=== PATIENT | female | born 1965 | race Caucasian/White ===

== ENCOUNTER 2018-01-21 06:52 | Emergency (ER) | payer BC, SELFPAY ==
[2018-01-21 06:55] VITALS: BP 147/104; PULSE 126; RESP 14; TEMP 38; O2SAT 95
--- NOTE | 2018-01-21 07:05 | ED.GENADUL_ITS ---
Discharge Plan Disposition Patient Disposition: HOME Condition: Stable Discharge Details Chief Complaint: RespSymp Clinical Impression: Exudative pharyngitis Primary Care Provider: Alecia Godfrey ED Provider: Jermaine Bruce Home Meds and New Rx's Prescriptions: New penicillin V potassium 500 mg tablet 500 mg PO TID 10 Days Qty: 30 RF: 0 Continue citalopram 40 MG tablet 40 mg PO DAILY RF: 0 simvastatin 40 MG tablet 40 mg PO DAILY RF: 0 losartan-hydrochlorothiazide 1 EACH tablet 1 tab PO DAILY RF: 0 lactobacillus combination no.8 [Adult Probiotic] 1 EACH capsule 1 tab PO DAILY RF: 0 cyanocobalamin (vitamin B-12) [Vitamin B-12] 1,000 MCG/ML drops DAILY RF: 0 Tumeric 2 tab PO DAILY RF: 0 cyclobenzaprine 10 MG tablet 10 mg PO TID PRN (Reason: Muscle Spasm) Qty: 15 RF: 0 Discharge Instructions Instructions: Pharyngitis (ED) Additional Instructions: Home to rest today. Take penicillin as prescribed. Tylenol and/or ibuprofen as needed for pain. Follow-up with regular doctor if not improving in 3 days time. Return to the emergency department for any acute concern. Medical Decision Making 52-year-old female presents from home with 2 days of sore throat, fevers, generalized malaise. She does not have a cough or respiratory symptoms. She is febrile and with a borderline tachycardia at the time of my exam. Oropharynx reveals tonsillar erythema with overlying exudate. Rapid strep obtained and +, will treat with a course of antibiotics. Discussed home management as well as return precautions with her. HPI General Mode of arrival: ambulatory . Date/Time Provider Initiated Documentation: 01/21/18 06:56 . Limitations to Documentation: no limitations . Information obtained by: patient . History of Present Illness 52 year old F presents to the emergency department with the chief complaint of Sore throat, described as moderate and severe, Quality is described as aching and constant, Patient reports no radiation. Patient started experiencing this day(s) and it has been constant. No relieving factors improve symptom(s), No exacerbating factors reported . Patient notes fever/ chills and malaise; denies cough and nausea/vomiting. Related Data Home Medications Medication Instructions Recorded Confirmed Tumeric 2 tab PO DAILY 03/21/17 01/21/18 citalopram 40 mg PO DAILY 03/21/17 01/21/18 cyanocobalamin (vitamin B-12) DAILY 03/21/17 [Vitamin B-12] cyclobenzaprine 10 mg PO TID PRN #15 tab 03/21/17 01/21/18 lactobacillus combination no.8 1 tab PO DAILY 03/21/17 01/21/18 [Adult Probiotic] losartan-hydrochlorothiazide 1 tab PO DAILY 03/21/17 01/21/18 simvastatin 40 mg PO DAILY 03/21/17 01/21/18 penicillin V potassium 500 mg PO TID 10 Days #30 tab 01/21/18 Previous Rx's Medication Instructions Recorded cyclobenzaprine 10 mg PO TID PRN #15 tab 03/21/17 penicillin V potassium 500 mg PO TID 10 Days #30 tab 01/21/18 Allergies Allergy/AdvReac Type Severity Reaction Status Date / Time acetaminophen [From Vicodin] Allergy Intermediate Itching Unverified 01/21/18 07 :00 hydrocodone [From Vicodin] Allergy Intermediate Itching Unverified 01/21/18 07: 00 General Stated Complaint: RespSymp THEE: 4 Review of Systems Review of Systems + sinus pain and pressure, 6 systems reviewed and otherwise neg PFSH Social History Smoking/Tobacco Use Status: Never Social History Smoking/Tobacco Use Status: Never Exam Narrative Exam Narrative: GEN: awake, alert, oriented 3. Pleasant, well groomed, interactive. HEAD: Normocephalic, atraumatic ENT: Mucous membranes moist, oropharynx with erythema, left greater than right tonsillar inflammation with overlying white exudate. Uvula is midline. Anterior cervical lymphadenopathy, External ear exam unremarkable EYES: PERRL, EOMI NECK: Full ROM, no SHAHEEN, no menigismus CHEST/RESP: Nontender, clear to auscultation bilateral, no wheeze/rhonchi/rales CARDIOVASCULAR:borderline tachycardia, no murmur, rub alyssa. 2+ Rad pulse bilateral ABDOMEN: Soft, nontender, no mass. +Bowel sounds EXT: Full ROM, no edema, no rash Neuro: Grossly normal neurologic exam, conversant, interactive. Psych: Speech fluent, thoughts congruent, affect normal Course Vital Signs Temperature 38.0 C H 01/21/18 06:55 Pulse 126 H 01/21/18 06:55 Respiratory Rate 14 01/21/18 06:55 Blood Pressure 147/104 H 01/21/18 06:55 Pulse Oximetry 95 01/21/18 06:55 Temperature 38.0 C H 01/21/18 06:55 Temperature Source Temporal Artery Scan 01/21/18 06:55 Pulse 126 H 01/21/18 06:55 Respiratory Rate 14 01/21/18 06:55 Respiratory Effort Non-Labored 01/21/18 06:59 Blood Pressure 147/104 H 01/21/18 06:55 Pulse Oximetry 95 01/21/18 06:55 Oxygen Delivery Method Room Air 01/21/18 06:55 Oxygen Flow Rate 0 01/21/18 06:55 Pain Level 4 01/21/18 06:55
[2018-01-21] MEDS: Dexamethasone 4 MG TAB 10 MG PO (07:15)
[2018-01-21] MEDS: Penicillin V POTASSIUM 500 MG TAB PO (07:15)
[2018-01-21] MEDS: Ibuprofen 800 MG TAB PO (07:16)
== END 2018-01-21 07:20 | disposition home or self-care (01) ==
LOC: ER 07:25
PROVIDERS: Emergency Provider Emergency Medicine; PCP Internal Medicine
DX: J02.0 Streptococcal pharyngitis (principal); I10 Essential (primary) hypertension
CPT/HCPCS: 87880; 99283; J8540

== ENCOUNTER 2018-01-24 05:51 | Emergency (ER) | payer BC, SELFPAY ==
[2018-01-24 05:58] VITALS: BP 139/101; PULSE 107; RESP 18; TEMP 36.7; O2SAT 94
--- NOTE | 2018-01-24 06:28 | ED.GENADUL_ITS ---
Discharge Plan Disposition Patient Disposition: HOME Condition: Stable Discharge Details Chief Complaint: Sorethroat Clinical Impression: Strep pharyngitis, Viral syndrome Primary Care Provider: Alecia Godfrey ED Provider: Citlali Tyler Home Meds and New Rx's Prescriptions: New prednisone 20 mg tablet 20 mg PO DIRECTED Qty: 12 RF: 0 Continue citalopram 40 MG tablet 40 mg PO DAILY RF: 0 simvastatin 40 MG tablet 40 mg PO DAILY RF: 0 losartan-hydrochlorothiazide 1 EACH tablet 1 tab PO DAILY RF: 0 lactobacillus combination no.8 [Adult Probiotic] 1 EACH capsule 1 tab PO DAILY RF: 0 cyanocobalamin (vitamin B-12) [Vitamin B-12] 1,000 MCG/ML drops DAILY RF: 0 Tumeric 2 tab PO DAILY RF: 0 cyclobenzaprine 10 MG tablet 10 mg PO TID PRN (Reason: Muscle Spasm) Qty: 15 RF: 0 penicillin V potassium 500 mg tablet 500 mg PO TID 10 Days Qty: 30 RF: 0 Discharge Instructions Instructions: Pharyngitis (ED), Viral Syndrome (ED) Additional Instructions: Take the antibiotics and steroids until finished. Alternate Tylenol and Motrin as needed and directed for pain. Drink plenty of fluids and get plenty of rest. Follow-up with your primary care doctor next week as scheduled for reevaluation. Return to the emergency department with any worsening or new concerning symptoms. Discharge Data Discharge Physician: Citlali Tyler Medical Decision Making 52-year-old female diagnosed with strep pharyngitis 3 days ago in the ED sent home on penicillin who presents with worsening sore throat, fatigue, malaise and postnasal drip. Denies shortness of breath or known fever. Patient was given a dose of Decadron on her visit 3 days ago. Patient has bilateral tonsillar edema, erythema and exudates. Uvula midline. No obvious peritonsillar abscess. No submandibular swelling. No significant mass or splenomegaly but has minimal LUQ tenderness. She denies any known abdominal pain. Differential diagnosis includes mono, or viral syndrome, or worsening pharyngitis that will require a few days of steroids. Patient denies any shortness of breath and discussed that her cough with occasional sputum likely due to the postnasal drip noted on exam. Her lungs are otherwise clear to auscultation. Patient is agreeable with this and is declining a chest x-ray at this time. We will give a dose of prednisone p.o. and check a mono screen. 0710 --monoscreen negative. Discussed with patient that there is a small percentage of patients that may have a false negative mono screen. Discussed with patient that 48 hours of antibiotics is generally the timeframe to see an effect. She states she has not been on any other recent antibiotics. Discussed the treatment for viral syndrome/mono is essentially the same including plenty of rest, fluids, Tylenol, Motrin. We will send home with a prescription for steroids. Instructed that her symptoms may be the beginning signs of another illness that is not apparent at this time and that if she has any worsening or new concerning symptoms to return immediately to the emergency department. Patient has a follow-up appointment with her primary care doctor in 1 week for reevaluation. HPI General Mode of arrival: ambulatory . Date/Time Provider Initiated Documentation: 01/24/18 06:03 . Limitations to Documentation: no limitations . Information obtained by: patient . HPI Narrative: Patient is a 52-year-old female who presents the ED with complaint of worsening sore throat over the past few days. Patient was seen here 3 days ago for the same complaint and diagnosed with strep pharyngitis and sent home with penicillin. Patient states since then her sore throat has become worse, with associated thick postnasal drip, occasional cough productive of sputum, and body aches and fatigue. She denies known fever. She states she has been able to eat and drink but difficulty with swallowing due to pain. Related Data Home Medications Medication Instructions Recorded Confirmed Tumeric 2 tab PO DAILY 03/21/17 01/24/18 citalopram 40 mg PO DAILY 03/21/17 01/24/18 cyanocobalamin (vitamin B-12) DAILY 03/21/17 [Vitamin B-12] cyclobenzaprine 10 mg PO TID PRN #15 tab 03/21/17 01/24/18 lactobacillus combination no.8 1 tab PO DAILY 03/21/17 01/24/18 [Adult Probiotic] losartan-hydrochlorothiazide 1 tab PO DAILY 03/21/17 01/24/18 simvastatin 40 mg PO DAILY 03/21/17 01/24/18 penicillin V potassium 500 mg PO TID 10 Days #30 tab 01/21/18 01/24/18 prednisone 20 mg PO DIRECTED #12 tab 01/24/18 Previous Rx's Medication Instructions Recorded cyclobenzaprine 10 mg PO TID PRN #15 tab 03/21/17 penicillin V potassium 500 mg PO TID 10 Days #30 tab 01/21/18 prednisone 20 mg PO DIRECTED #12 tab 01/24/18 Allergies Allergy/AdvReac Type Severity Reaction Status Date / Time acetaminophen [From Vicodin] Allergy Intermediate Itching Unverified 01/24/18 06 :02 hydrocodone [From Vicodin] Allergy Intermediate Itching Unverified 01/24/18 06: 02 General Stated Complaint: Sorethroat THEE: 4 Review of Systems Review of Systems All systems reviewed & are unremarkable except as noted in HPI and below Constitutional Reports as per HPI, Denies chills, Reports fatigue, Denies fever(s) and Reports malaise Eyes Denies blurry vision ENT Denies dizziness, Reports sore throat and Denies throat swelling Cardiovascular Denies chest pain and Denies dyspnea Respiratory Reports cough and Denies dyspnea Gastrointestinal Denies abdominal pain, Denies diarrhea and Denies vomiting Genitourinary Denies hematuria and Denies dysuria Musculoskeletal Denies back pain and Denies numbness Integumentary/Breasts Denies lesions and Denies rash Neurologic Denies dizziness and Denies numbness Endocrine Reports fatigue Allergic/Immunologic Denies throat swelling PFSH Hyperlipemia (Acute) HTN (hypertension) (Chronic) History of hysterectomy (Chronic) History of appendectomy (Chronic) Hx of cholecystectomy (Chronic) Medical History Hyperlipemia (Acute) HTN (hypertension) (Chronic) History of hysterectomy (Chronic) Social History Smoking/Tobacco Use Status: Never Surgical History History of appendectomy (Chronic) Hx of cholecystectomy (Chronic) Social History Smoking/Tobacco Use Status: Never alcohol intake: current alcohol intake frequency: holidays/special occasions only substance use type: does not use Exam Const General: cooperative and no acute distress Orientation: alert, awake and oriented x3 HENMT Head: normal to inspection Ears: hearing grossly normal bilaterally, external ears normal and TM's normal bilaterally General nose exam: external nose normal Face and sinus: normal facial exam Mouth: oral mucosae normal Teeth and gingiva: dentition normal Throat: uvula midline, no peritonsillar masses and posterior oropharynx abnormal (yellow post-nasal drip noted. Moderate tonsillar edema. ) edema, erythema and exudates Eyes General: appearance normal, both eyes and all related structures Eyelids: eyelids normal Pupils: PERRL EOM: EOM intact bilaterally Neck Neck: normal visual inspection Lymphatic: no lymphadenopathy noted Chest Chest: normal inspection of the chest Resp Effort & Inspection: normal respiratory effort and able to speak in complete sentences Auscultation: clear to auscultation bilaterally Cardio Rate: regular rate Rhythm: regular rhythm GI Inspection: normal to inspection Palpation: soft, not firm, no guarding, no hepatosplenomegaly, no masses and tender in the LUQ Auscultation: normal bowel sounds Back/Spine/Pelvis Back: no CVA tenderness Skin General skin exam: no rashes or lesions noted Neuro General: alert and awake Cognition: normal cognition Speech: speech normal Gait: normal gait Motor: muscle tone normal throughout Sensory Exam: no sensory deficits noted Extrem General: normal to inspection, full ROM, normal capillary refill and no edema Psych Appearance: grossly normal Mental Status: mental status grossly normal Speech and Movement: speech and movement normal Affect: normal affect Thought Process: normal Course Vital Signs Temperature 98.1 F 01/24/18 05:58 Pulse 107 H 01/24/18 05:58 Respiratory Rate 18 01/24/18 05:58 Blood Pressure 139/101 H 01/24/18 05:58 Pulse Oximetry 94 L 01/24/18 05:58 Temperature 98.1 F 01/24/18 05:58 Temperature Source Temporal Artery Scan 01/24/18 05:58 Pulse 107 H 01/24/18 05:58 Respiratory Rate 18 01/24/18 05:58 Respiratory Effort 01/24/18 05:58 Blood Pressure 139/101 H 01/24/18 05:58 Pulse Oximetry 94 L 01/24/18 05:58 Oxygen Delivery Method Room Air 01/24/18 05:58 Oxygen Flow Rate 0 01/24/18 05:58 Pain Level 6 01/24/18 05:58
[2018-01-24] MEDS: predniSONE 20 MG TAB 60 MG PO (06:36)
[2018-01-24 06:48] LABS: Mono Screening Negative (Negative)
[2018-01-24 07:27] VITALS: PULSE 100; RESP 16; TEMP 37.2; O2SAT 95
== END 2018-01-24 07:30 | disposition home or self-care (01) ==
PROVIDERS: Emergency Provider Physician Assistant; PCP Internal Medicine
DX: J02.0 Streptococcal pharyngitis (principal); R53.83 Other fatigue; R53.81 Other malaise; R09.82 Postnasal drip; B34.9 Viral infection, unspecified; I10 Essential (primary) hypertension
CPT/HCPCS: 36415; 99283; 86308; 99284; J7512

== ENCOUNTER 2018-04-23 09:48 | Outpatient (CLI) | payer BC, SELFPAY ==
[2018-04-23 13:06] LABS: Anion Gap 7.8 mmol/L (3-11); BUN 19 mg/dL (7-18); CO2 31.2 mmol/L (21.0-32.0); CREATININE 0.93 mg/dL (0.55-1.02); Calcium 10.6 mg/dL (8.5-10.1); Chloride 104 mmol/L (98-107); Cholesterol 177 mg/dL (50-200); Glucose 108 mg/dL (70-100); HDL Cholesterol 47 mg/dL (40-60); LDL CHOLESTEROL 116 mg/dL (<100); Sodium 143 mmol/L (136-145); Triglyceride 68 mg/dL (30-150)
== END 2018-04-23 10:08 ==
PROVIDERS: PCP Internal Medicine; Visit Provider Internal Medicine
DX: I10 Essential (primary) hypertension (principal); Z13.220 Encounter for screening for lipoid disorders
CPT/HCPCS: 36415; 80048; 80061; 83721

== ENCOUNTER 2019-04-20 20:41 | Emergency (ER) | payer BC, SELFPAY ==
--- NOTE | 2019-04-20 20:45 | DI.RAD_ITS ---
EXAM: XR CHEST 2V PA LATERAL INDICATION: cough fever. COMPARISON: ABD FLAT UPRIGHT PA CHEST from 09/09/2015 TECHNIQUE: 2D digital imaging was performed. FINDINGS: The exam is somewhat limited by the patient's body habitus. The heart size is within normal limits. Again noted is mild basilar scarring, not significantly changed from the previous exam. No infiltr ate or effusion is seen. IMPRESSION: No acute abnormality. DATA REPOSITORY: RADIATION DOSE DELIVERED:
[2019-04-20 20:46] VITALS: BP 166/96; PULSE 135; RESP 22; TEMP 38
--- NOTE | 2019-04-20 20:54 | ED.GENADUL_ITS ---
Discharge Plan Disposition Patient Disposition: HOME Condition: Stable Discharge Details Chief Complaint: RespSymp Clinical Impression: Community acquired pneumonia, Lung nodule Primary Care Provider: Alecia Godfrey ED Provider: Shady Haney Home Meds and New Rx's Prescriptions: New levofloxacin 750 mg tablet 750 mg PO DAILY Qty: 4 RF: 0 Continued citalopram 40 MG tablet 40 mg PO DAILY RF: 0 simvastatin 40 MG tablet 40 mg PO DAILY RF: 0 losartan-hydrochlorothiazide 1 EACH tablet 1 tab PO DAILY RF: 0 Adult Probiotic 1 EACH capsule 1 tab PO DAILY RF: 0 cyclobenzaprine 10 MG tablet 10 mg PO TID PRN (Reason: Muscle Spasm) Qty: 15 RF: 0 Discharge Instructions Instructions: Community Acquired Pneumonia (ED) Additional Instructions: your blood work did not show any concerning findings. The xray showed a lung nodule which you should inform your primary care of as you will need further imaging in the future follow up with your primary care provider within 1 week if you feel more ill, have difficulty breathing or persistent vomit return to the emergency department Medical Decision Making 54 yo female with hx of htn, hld, denies smoking or drug use or recent travel, comes in with cough, fevers, body aches, fatigue for 3 days. Denies vomit, rashes. On exam does have clear rhinorrhea, does have clear lung sounds, soft nontender abdomen. States family tested positive for flu recently and just found this out. Could be influenza but could also be pneumonia based on productive cough. Will obtain labs, give fluids given she does appear dehydrated and obtain influenza swab and chest xray and monitor pt remains stable, labs unremarkable, negative flu which could be false negative but is on day 3 so would not be tamiflu candidate regardless. Xray shows clear lungs, has lung nodule and advised her of this and to discuss with pcp as will likely need further imaging. I am concerned with her productive cough of early pneumonia and will start abx for this. She is otherwise stable for d/c and will f/u with pcp, return precautions given Differential Diagnosis Differential Diagnosis: influenza, uri, pneumonia Imaging Data Radiologic Study: Attestation: I personally reviewed and interpreted this imaging study as follows: Imaging: X-Ray Radiologist's impression: IMPRESSION: 1. Suspected 1 cm nodular density in the mid right lung field with probable prominent pleuropericardial fat pad also seen at the cardiac apex. 2. Chest CT could be performed for further evaluation of the suspected right pulmonary nodule. Lab Data Lab results reviewed: Yes I reviewed the patient's lab results. HPI General Mode of arrival: ambulatory . Date/Time Provider Initiated Documentation: 04/20/19 20:44 . Limitations to Documentation: no limitations . Information obtained by: patient . History of Present Illness 54 year old F presents to the emergency department with the chief complaint of cough, described as moderate, Patient started experiencing this day(s) (3) and it has been intermittent. No relieving factors improve symptom(s), No exacerbating factors reported . Patient notes fever/chills. Patient did receive the following treatments prior to arrival, none Related Data Home Medications Medication Instructions Recorded Confirmed Adult Probiotic 1 tab PO DAILY 03/21/17 04/20/19 citalopram 40 mg PO DAILY 03/21/17 04/20/19 cyclobenzaprine 10 mg PO TID PRN #15 tab 03/21/17 04/20/19 losartan-hydrochlorothiazide 1 tab PO DAILY 03/21/17 04/20/19 simvastatin 40 mg PO DAILY 03/21/17 04/20/19 levofloxacin 750 mg PO DAILY #4 tab 04/20/19 Previous Rx's Medication Instructions Recorded cyclobenzaprine 10 mg PO TID PRN #15 tab 03/21/17 levofloxacin 750 mg PO DAILY #4 tab 04/20/19 Allergies Allergy/AdvReac Type Severity Reaction Status Date / Time acetaminophen [From Vicodin] Allergy Intermediate Itching Unverified 01/24/18 06:02 hydrocodone [From Vicodin] Allergy Intermediate Itching Unverified 01/24/18 06:02 General Stated Complaint: RespSymp THEE: 3 Review of Systems All systems reviewed & are unremarkable except as noted in HPI and below Cardiovascular Cardiovascular: Denies chest pain and Denies dyspnea Respiratory Respiratory: Denies dyspnea Gastrointestinal Gastrointestinal: Denies abdominal pain, Denies nausea and Denies vomiting Musculoskeletal Musculoskeletal: Denies joint swelling Endocrine Endocrine: Denies heat intolerance [facility] Social History Smoking/Tobacco Use Status: Never Alcohol Intake: current Alcohol Intake frequency: holidays/special occasions only Drug use: Never Substance use type: does not use Do you feel safe at home: Yes Do you feel safe in your relationship?: Yes Exam Const General: no acute distress Orientation: alert HENMT Head: normal to inspection Ears: external ears normal General nose exam: external nose normal Mouth: moist mucous membranes Eyes General: appearance normal, both eyes and all related structures Neck Neck: normal visual inspection Resp Effort & Inspection: normal respiratory effort and able to speak in complete sentences Cardio Rate: tachycardic Skin General skin exam: no rashes or lesions noted Neuro General: alert and oriented x3 Extrem General: normal to inspection Psych Mental Status: mental status grossly normal Course Vital Signs Vital signs: Vital Signs Temperature 38.0 C H 04/20/19 20:46 Pulse 135 H 04/20/19 20:46 Respiratory Rate 22 04/20/19 20:46 Blood Pressure 166/96 H 04/20/19 20:46 Temperature 38.0 C H 04/20/19 20:46 Temperature Source Oral 04/20/19 20:46 Pulse 135 H 04/20/19 20:46 Respiratory Rate 22 04/20/19 20:46 Respiratory Effort 04/20/19 20:49 Blood Pressure 166/96 H 04/20/19 20:46 Blood Pressure Position Sitting 04/20/19 20:46 Oxygen Delivery Method Room Air 04/20/19 20:46 Oxygen Flow Rate 0 04/20/19 20:46 Pain Level 6 04/20/19 20:46
[2019-04-20] MEDS: Ibuprofen 600 MG TAB PO (21:07)
[2019-04-20] MEDS: Lactated Ringers 1,000 ML 1000 ML IV (21:08)
[2019-04-20] MEDS: Normal Saline Flush 10 ML SYR IVP (21:09)
[2019-04-20 21:15] LABS: Abs Immature Grans 0.02 k/cumm (0.0-0.09); Absolute Basophil Count 0.02 k/cumm (0.0-0.2); Absolute Eosinophil Count 0.12 k/cumm (0.0-0.7); Absolute Lymphocyte Count 1.28 k/cumm (1.2-3.4); Absolute Monocyte Count 1.19 k/cumm (0.11-0.7); Basophils % 0.2; HCT 41.7 % (36.0-46.0); HGB 13.7 g/dL (12.0-15.5); Immature Grans % 0.2 %; Lymphocytes % 10.8; Mean Corp. HGB Concentration 32.9 g/dL (32.0-36.0); Mean Corpuscular Hemoglobin 29.3 pg (27.0-33.0); Mean Corpuscular Volume 89.3 fL (80-95); Mean Platelet Volume 9.2 fL (8.0-11.0); Neutrophils % 77.8; Platelet Count 346 x1000/uL (130-400); RBC 4.67 m/cumm (4.00-5.20); RBC Distribution Width 13.1 % (11.7-14.6); White Blood Cell Count 11.89 k/cumm (4.4-10.8)
[2019-04-20 21:18] LABS: Absolute Neutrophil Count 9.25 k/cumm (1.2-6.7)
[2019-04-20 21:28] LABS: ALT 26 U/L (14-59); AST 16 U/L (15-37); Albumin 3.4 g/dL (3.4-5.0); Alkaline Phosphatase 99 U/L (46-116); Anion Gap 7.9 mmol/L (3-11); BUN 19 mg/dL (7-18); Bilirubin, Total 0.4 mg/dL (0.2-1.0); CO2 29.1 mmol/L (21.0-32.0); CREATININE 0.96 mg/dL (0.55-1.02); Calcium 8.7 mg/dL (8.5-10.1); Chloride 99 mmol/L (98-107); Glucose 119 mg/dL (74-106); Potassium 3.7 mmol/L (3.5-5.1); Sodium 136 mmol/L (136-145); Total Protein 7.6 g/dL (6.4-8.2)
--- NOTE | 2019-04-20 21:36 | DI.VRAD_ITS ---
PROCEDURE INFORMATION: Exam: XR Chest, 2 Views Exam date and time: 04/20/2019 9:25 PM Age: 54 years old Clinical indication: Cough and fever; Patient HX: Cough, fever TECHNIQUE: Imaging protocol: XR of the chest Views: 2 views. COMPARISON: CR ABD FLAT UPRIGHT PA CHEST 09/09/2015 10:11 PM FINDINGS: Lungs: Hazy indistinct opacity at the left lung base adjacent to the cardiac apex may relate in part to a prominent pleuropericardial fat pad. A 10 mm nodular density in the midportion of the right lung field just medial to the inferior angle of the right scapula on the PA view is consistent with a pulmonary nodule. The remainder of both lungs and the pleural margins otherwise clear with no other. Pleural space: Unremarkable. No pleural effusion. No pneumothorax. Heart/Mediastinum: Unremarkable. No cardiomegaly. Bones/joints: Unremarkable. IMPRESSION: 1. Suspected 1 cm nodular density in the mid right lung field with probable prominent pleuropericardial fat pad also seen at the cardiac apex. 2. Chest CT could be performed for further evaluation of the suspected right pulmonary nodule. Dictated and Authenticated by: Gordy Yepez MD. Ordering:YURY Caruso MD
[2019-04-20] MEDS: levoFLOXacin 500 MG, levoFLOXacin 250 MG 750 MG PO (21:51)
[2019-04-20 22:08] VITALS: BP 145/96; PULSE 101; RESP 18; TEMP 37.7; O2SAT 98
[2019-04-20 22:11] VITALS: BP 145/96; PULSE 101; RESP 18; TEMP 37.7; O2SAT 98
== END 2019-04-20 22:20 | disposition home or self-care (01) ==
PROVIDERS: Emergency Provider Emergency Medicine; PCP Internal Medicine
DX: J18.9 Pneumonia, unspecified organism (principal); R91.1 Solitary pulmonary nodule; I10 Essential (primary) hypertension
CPT/HCPCS: 80053; 87449; 96360; 99284; 71046; 85025

== ENCOUNTER 2019-05-11 02:03 | Outpatient (CLI) | payer BC, SELFPAY ==
--- NOTE | 2019-05-11 | DI.CT_ITS ---
EXAM: CT CHEST WO CLINICAL HISTORY: ABNL XR OF LUNGS WITH SINGLE PULMONARY NODULE, R91.1 COMPARISON: ABD FLAT UPRIGHT PA CHEST from 09/09/2015 ABD FLAT UPRIGHT PA CHEST from 09/09/2015 XR CHEST 2V PA LATERAL from 04/20/2019 FINDINGS: CT examination of the chest was performed without contrast administration. Recent chest radiograph s howed a very faint nodular radiodensity over peripheral right mid lung field. This corresponds to a pulmonary nodule identified by CT. The right lower lobe nodule measures about 15 millimeters in diameter and shows slight spiculation wi th some small satellite nodules and component extending towards the hilum. There is a tiny faint edvin cification in the central portion of the nodule. There is probable mildly enlarged right hilar node with some questionable very faint internal calcification present as well measuring roughly 19 millime ters. No additional adenopathy seen. No additional pulmonary nodule seen. Tracheobronchial tree ap pears intact. No pleural effusion. Images obtained through the upper abdomen show unremarkable appearance of visualized portions of the liver and spleen with no splenic calcifications identified. Gallbladder has been surgically removed. No biliary dilatation. Adrenals are unremarkable bilaterally. IMPRESSION: Right lower lobe intrapulmonary nodule seen adjacent to the major fissure, this has imaging features which are somewhat suspicious for pulmonary neoplasm as described above. Additional evaluation with PET-CT or tissue sampling recommended.
== END 2019-05-11 02:23 ==
PROVIDERS: PCP Internal Medicine; Visit Provider Internal Medicine
DX: R91.1 Solitary pulmonary nodule (principal); R91.8 Other nonspecific abnormal finding of lung field
CPT/HCPCS: 71250

== ENCOUNTER 2019-09-08 07:38 | Outpatient (CLI) | payer BC, SELFPAY ==
[2019-09-13 12:13] LABS: SARS-CoV-2 RNA Undetected (Undetected); SARS-CoV-2 Specimen Source Nasopharynx
== END 2019-09-08 07:58 ==
PROVIDERS: PCP Internal Medicine; Visit Provider Internal Medicine
DX: Z11.59 Encounter for screening for other viral diseases (principal)
CPT/HCPCS: U0003

== ENCOUNTER 2019-10-22 09:02 | Outpatient (CLI) | payer BC, SELFPAY ==
--- NOTE | 2019-10-22 08:45 | DI.RAD_ITS ---
EXAM: XR HEEL RT OS CALCIS and XR ankle RT 2 view CLINICAL HISTORY: eval R heel pain. TECHNIQUE: 2D digital imaging was performed. COMPARISON: No previous for comparison. FINDINGS: BONES: No acute fracture is present. No bony destructive lesion is seen. There is a moderate-sized p lantar calcaneal spur. Enthesophytes are seen at the Achilles insertion site. Mild hypertrophic bakari nges are seen at the distal fibula. The bones are normally mineralized. JOINTS: No dislocation present. The ankle mortise is unremarkable. SOFT TISSUE: Normal. IMPRESSION: No acute abnormality. DATA REPOSITORY: RADIATION DOSE DELIVERED:
== END 2019-10-22 09:22 ==
PROVIDERS: PCP Internal Medicine; Referring Provider Internal Medicine; Visit Provider Student in an Organized Health Care Education/Training Program
DX: M79.671 Pain in right foot (principal)
CPT/HCPCS: 73600; 73650

== ENCOUNTER 2019-11-05 01:22 | Outpatient (CLI) | payer BC, SELFPAY ==
--- NOTE | 2019-11-05 08:15 | DI.MRI_ITS ---
EXAM: MR LOWER JOINT RT WO CLINICAL HISTORY: RT ANKLE PAIN, M25.571. TECHNIQUE: Multiplanar multisequence MRI was performed. COMPARISON: No exams were available for comparison FINDINGS: MR examination of the ankle was performed according to the usual protocol. No significant marrow signal identified in the bones of the ankle except at the plantar fascia attach ment. Achilles tendon: Normal signal and diameter of the Achilles, adjacent calcaneal marrow signal is norm al. Plantar fascia: Moderate sized plantar fascia osteophyte. Mild marrow edema adjacent to plantar fasc ia insertion. Abnormal signal in proximal plantar fascia without evidence of a discrete tear, this a ppears to involve the central. Mild fat edema adjacent to plantar fascia proximally. Findings consi stent moderate plantar fasciitis. Ligaments: The medial and lateral ligaments of the ankle appear intact. No abnormality of alignment of the bones of the ankle. Tendons: Medial tendons appear intact. There is increased fluid in peroneal tendon sheath. There is an apparent longitudinal split of the p eroneus brevis associated with the posterior aspect of the lateral malleolus, which appears to show m ild osteophyte formation. Peroneal longus tendon appears intact. No full-thickness tear or retracti on of the peroneal brevis. The overlying peroneal retinaculum appears intact as visualized. Sinus tarsi: Unremarkable signal and intact ligaments in the sinus tarsi. IMPRESSION: Findings consistent with moderate proximal plantar fasciitis as described above. Posterior fibular osteophytes with associated deformity and longitudinal tearing of the peroneus brev is tendon. DATA REPOSITORY:
== END 2019-11-05 01:42 ==
PROVIDERS: PCP Internal Medicine; Visit Provider Student in an Organized Health Care Education/Training Program
DX: M25.571 Pain in right ankle and joints of right foot (principal); M25.771 Osteophyte, right ankle
CPT/HCPCS: 73721

== ENCOUNTER 2020-03-09 15:35 | Emergency (ER) | payer BC, SELFPAY ==
[2020-03-09 15:38] VITALS: BP 139/95; PULSE 115; RESP 16; TEMP 36.3; O2SAT 97
--- NOTE | 2020-03-09 16:00 | DI.CT_ITS ---
EXAM: CT ABDOMEN PELVIS W CLINICAL HISTORY: LLQ abd pain TECHNIQUE: Imaging Protocol: Axial computed tomography images with coronal and sagittal reformatted images were created and reviewed CONTRAST MATERIAL: Intravenous: Omnipaque 350 Contrast volume:100 mL Oral: No COMPARISON: CT CT CHEST WO from 05/11/2019 FINDINGS: ABDOMEN: Lung Bases: Normal where visualized. Liver: Normal density. No measurable mass. Portal, Superior Mesenteric, and Splenic Veins: Unremarkable. Gallbladder and Biliary Tract: Status post cholecystectomy. No biliary ductal dilatation. Pancreas: Normal density, no abnormal calcifications or inflammatory process. Spleen: Normal. Adrenals: No masses seen. Kidneys: Normal size, contour and axis. No radiodense stones or obstructive uropathy. No masses seen. Abdominal Aorta: Abdominal portion non-dilated. Atherosclerosis. Bowel: No obstruction or bowel wall thickening. No evidence of appendicitis. Scattered colonic diver ticulosis but no evidence of acute diverticulitis. Peritoneal Cavity: No ascites, collection or mesenteric inflammatory response. No free air. Lymph Nodes: Within normal limits. Bones: Within normal limits for the patient's age. Soft Tissues: Unremarkable. PELVIS: Bladder: Symmetric distention, no gross wall thickening. Reproductive Organs: Question of at least a partial hysterectomy. Lymph Nodes: Within normal limits. Bones: Within normal limits for the patient's age. IMPRESSION: No acute abdominal or pelvic process. RADIATION DOSE DELIVERED: 1,567.95mGy.cm Total DLP DATA REPOSITORY: All CT scans at this facility are submitted to the National Radiology Data Registry (NRDR) Dose Index Registry (DIR) with the [employer] (ACR). RADIATION OPTIMIZATION: All CT scans at this facility use at least one of these dose optimization te chniques: automated exposure control; mA and/or kV adjustment per patient size (includes targeted exa ms where dose is matched to clinical indication); or iterative reconstruction.
--- NOTE | 2020-03-09 16:54 | ED.GENADUL_ITS ---
Discharge Plan Disposition Patient Disposition: HOME Condition: Stable Discharge Details Clinical Impression: Abdominal pain Primary Care Provider: Alecia Godfrey ED Provider: Swapna Jacob Home Meds and New Rx's Prescriptions: New ondansetron 4 mg tablet,disintegrating 4 mg PO Q8H PRN5 Days Qty: 15 RF: 0 Continued citalopram 40 MG tablet 40 mg PO DAILY RF: 0 simvastatin 40 MG tablet 40 mg PO DAILY RF: 0 losartan-hydrochlorothiazide 1 EACH tablet 1 tab PO DAILY RF: 0 Adult Probiotic 1 EACH capsule 1 tab PO DAILY RF: 0 cyclobenzaprine 10 MG tablet 10 mg PO TID PRN (Reason: Muscle Spasm) Qty: 15 RF: 0 Discharge Instructions Instructions: Abdominal Pain (ED) Additional Instructions: Follow up with primary care provider in 3-5 days. Return to ED sooner if any worsening abdominal pain, fever, vomiting or concerns. Increase oral fluids. Please take Tylenol or Ibuprofen with food every 4-6 hours as needed for pain and swelling. Take medications as prescribed. At this time the CT of your abdomen shows no bowel thickening no evidence of diverticulitis. Referrals: Alecia Godfrey [Primary Care Provider] - Medical Decision Making 55-year-old female presents to the ED with LLQ abd pain started 5 days ago, hx of diverticulitis. No vomiting, positive nausea, no hematochezia. Patient has a past medical history of hypertension, hyperlipidemia, appendectomy, hysterectomy and cholecystectomy. Work-up ordered including CBC, CMP, lipase, urinalysis and CT abdomen pelvis wit h contrast. CBC is largely within normal limits no leukocytosis CMP is also within normal limits. Sodium is 138 potassium 3.7 carbon dioxide 33.8 BUN is 19 creatinine 1.90 GFR greater than 60 urine is within normal limits no leukocytes no nitrites. Exam: CT Abdomen And Pelvis With Contrast IMPRESSION: 1. Question prior partial hysterectomy or other uterine surgery. Please correlate with clinical data. 2. No acute abdominopelvic process detected. Discussed CT results with patient who verbalized understanding. This time is safe for patient be discharged home. I will give her some nausea medication to go home with. HPI General Mode of arrival: ambulatory . Date/Time Provider Initiated Documentation: 03/09/20 16:12 . Limitations to Documentation: no limitations . Information obtained by: patient . HPI Narrative: 55-year-old female presents to the ED with LLQ abd pain started 5 days ago, hx of diverticulitis. No vomiting, positive nausea, no hematochezia. Patient has a past medical history of hypertension, hyperlipidemia, appendectomy, hysterectomy and cholecystectomy. Related Data Home Medications Medication Instructions Recorded Confirmed Adult Probiotic 1 tab PO DAILY 03/21/17 12/17/19 citalopram 40 mg PO DAILY 03/21/17 12/17/19 cyclobenzaprine 10 mg PO TID PRN #15 tab 03/21/17 12/17/19 losartan-hydrochlorothiazide 1 tab PO DAILY 03/21/17 12/17/19 simvastatin 40 mg PO DAILY 03/21/17 12/17/19 ondansetron 4 mg PO Q8H PRN 5 Days #15 tab 03/09/20 Previous Rx's Medication Instructions Recorded cyclobenzaprine 10 mg PO TID PRN #15 tab 03/21/17 ondansetron 4 mg PO Q8H PRN 5 Days #15 tab 03/09/20 Allergies Allergy/AdvReac Type Severity Reaction Status Date / Time acetaminophen [From Vicodin] Allergy Intermediate Itching Unverified 03/09/20 15:43 hydrocodone [From Vicodin] Allergy Intermediate Itching Unverified 03/09/20 15:43 General Stated Complaint: Abd Prob THEE: 3 Review of Systems Narrative: Constitutional: Negative for weight loss, alert and oriented, well groomed, normal body habitus, appears comfortable. HEENT: Denies trauma, headaches, blurry vision, nasal discharge, sore throat, trouble swallowing. Chest: Denies chest pain, palpitations, irregular rhythm, hypertension. Respiratory: Denies Shortness of breath, cough, hemoptysis. GI: Denies vomiting, diarrhea, constipation. Positive left lower quadrant and left upper quadrant abdominal pain, positive nausea no vomiting. : Denies dysuria, hematuria, flank pain, rectal bleeding. Neuro: Denies dizziness, blurry vision, weakness, syncope, headache or facial numbness. Hematologic: Denies easy bruising, intolerance to heat or cold, hair loss. [facility] Medical History Bone spur of left ankle HTN (hypertension) Hyperlipemia Pain of left heel Tear of peroneal tendon of right foot Surgical History History of appendectomy History of hysterectomy Hx of cholecystectomy Social History Smoking/Tobacco Use Status: Never Smoking risk assessment performed?: Yes Alcohol Intake: current Alcohol Intake frequency: holidays/special occasions only Drug use: Never Substance use type: does not use Current gender identity: female Do you feel safe at home: Yes Do you feel safe in your relationship?: Yes Exam Narrative Exam Narrative: Constitutional: Alert and oriented x3. Appears stated age. Normal body habitus. Head: Normocephalic, no trauma. Eyes: Pupils PERRLA, Red reflex noted, EOM's intact. Eyelids symmetrical without lesions, discharge, or swelling. ENT: Bilateral TM's WNL, External ear normal to inspection, no mastoid TTP, swelling, or erythema, Nasal turbinates WNL, no nasal discharge. Normal dentition, Posterior pharynx WNL, no exudate. Chest: RRR, Normal S1, S2, distal pulses intact. Resp: Lungs clear to auscultation bilaterally, no wheezes, rales, or rhonchi. Abdomen: Soft, nondistended tender to left lower quadrant. Musculoskeletal: Normal gait, 5/5 strength to all four extremities. Skin: No suspicious rashes or lesions. Capillary refill less than 2 sec. Neurologic: Cranial nerves II-XII intact. Alert and oriented x 3. DTR's intact. Hematologic/Lymphatic: No ecchymosis, no lymphadenopathy. Course Vital Signs Vital signs: Vital Signs Temperature 36.3 C L 03/09/20 15:38 Pulse 115 H 03/09/20 15:38 Respiratory Rate 16 03/09/20 15:38 Blood Pressure 139/95 H 03/09/20 15:38 Pulse Oximetry 97 03/09/20 15:38 Temperature 36.3 C L 03/09/20 15:38 Temperature Source Skin 03/09/20 15:38 Pulse 115 H 03/09/20 15:38 Respiratory Rate 16 03/09/20 15:38 Respiratory Effort 03/09/20 15:43 Blood Pressure 139/95 H 03/09/20 15:38 Blood Pressure Position Sitting 03/09/20 15:38 Pulse Oximetry 97 03/09/20 15:38 Oxygen Delivery Method Room Air 03/09/20 15:38 Oxygen Flow Rate 0 03/09/20 15:38 Pain Level 3 03/09/20 15:38 Comment 03/09/20 15:38
[2020-03-09] MEDS: Ondansetron 4 MG/2 ML VIAL (17:28)
[2020-03-09 17:30] LABS: Bilirubin Negative (Negative); Blood Negative (Negative); Clarity Clear (Clear); Glucose Negative (Negative); Ketones Negative (Negative); Leukocyte Esterase Negative (Negative); Nitrite Negative (Negative); Specific Gravity >= 1.030 (1.005-1.025); Urobilinogen 0.2 EU/dL (Up TO 0.2)
[2020-03-09 17:34] LABS: Abs Immature Grans 0.05 10^3/uL (0.0-0.06); Absolute Basophil Count 0.04 10^3/uL (0.0-0.2); Absolute Eosinophil Count 0.29 10^3/uL (0.0-0.7); Absolute Lymphocyte Count 1.83 10^3/uL (1.2-3.4); Absolute Monocyte Count 0.67 10^3/uL (0.1-0.8); Absolute Neutrophil Count 5.25 10^3/uL (1.2-6.7); Basophils % 0.5; Eosinophils % 3.6; HCT 45.2 % (36.0-46.0); HGB 14.4 g/dL (11.2-15.7); Immature Grans % 0.6; Lymphocytes % 22.5; MCH 28.8 pg (27.0-33.0); MCHC 31.9 % (32.0-36.0); MCV 90.4 fL (80-95); MPV 9.1 fL (8.0-11.0); Monocytes % 8.2; Neutrophils % 64.6; Nucleated RBC 0 %; Platelet Count 350 10^3/uL (130-400); RDW 12.2 % (11.7-14.6); RDW-SD 40.6 fL; WBC 8.13 10^3/uL (4.4-10.8)
[2020-03-09 17:46] LABS: ALT 33 U/L (14-59); AST 16 U/L (15-37); Albumin 3.4 g/dL (3.4-5.0); Alkaline Phosphatase 116 U/L (46-116); Anion Gap 3.2 mmol/L (3-11); BUN 19 mg/dL (7-18); Bilirubin, Total 0.3 mg/dL (0.2-1.0); CO2 33.8 mmol/L (21.0-32.0); Calcium 9.1 mg/dL (8.5-10.1); Chloride 101 mmol/L (98-107); Glucose 91 mg/dL (74-106); Lipase 80 U/L (73-393); Magnesium 1.9 mg/dL (1.8-2.4); Potassium 3.7 mmol/L (3.5-5.1); Sodium 138 mmol/L (136-145)
[2020-03-09] MEDS: Normal Saline 1,000 ML 1000 ML IV (17:56)
[2020-03-09] MEDS: Omnipaque 350 MG/ML 100 ML BTL IJ (18:11)
[2020-03-09] MEDS: Normal Saline - Diluent 50 ML VIAL IV (18:12)
[2020-03-09] MEDS: Normal Saline Flush 10 ML SYR IVP (18:13)
--- NOTE | 2020-03-09 19:03 | DI.VRAD_ITS ---
PROCEDURE INFORMATION: Exam: CT Abdomen And Pelvis With Contrast Exam date and time: 03/09/2020 4:14 PM Age: 55 years old Clinical indication: Other: Llq abd pain TECHNIQUE: Imaging protocol: Computed tomography of the abdomen and pelvis with intravenous contrast. COMPARISON: No relevant prior studies available. FINDINGS: Lungs: Lung bases are clear and heart size is normal. No pleural or pericardial effusions are detected. Liver: No focal hepatic lesions detected. Gallbladder and bile ducts: Gallbladder is surgically absent. Pancreas: No pancreatic mass or ductal dilation. Spleen: No splenomegaly or splenic mass. Adrenal glands: Normal. No mass. Kidneys and ureters: Bilateral excretion of contrast material with no hydronephrosis seen. Stomach and bowel: Unremarkable. No obstruction. No mucosal thickening. Appendix: Normal appendix is identified without evidence of inflammation. Intraperitoneal space: No pneumoperitoneum or free intraperitoneal fluid detected. Vasculature: No abdominal aortic aneurysm Lymph nodes: No lymphadenopathy detected. Urinary bladder: Unremarkable as visualized. Reproductive: Question previous partial hysterectomy. Bones/joints: Degenerative disc disease is seen throughout the mid lower lumbar spine with no acute osseous lesions detected at abdominopelvic levels. Soft tissues: Unremarkable. IMPRESSION: 1. Question prior partial hysterectomy or other uterine surgery. Please correlate with clinical data. 2. No acute abdominopelvic process detected. Dictated and Authenticated by: Gordy Yepez MD. Ordering:STEFAN Barcenas MD
[2020-03-09] MEDS: Ondansetron O.D.T. 4 MG TABEF, 3 TABS/BTL PO (19:41)
[2020-03-09 19:47] VITALS: BP 115/67; PULSE 85; RESP 18; O2SAT 100
== END 2020-03-09 19:43 | disposition home or self-care (01) ==
PROVIDERS: Emergency Provider Registered Nurse Emergency; PCP Internal Medicine
DX: R10.32 Left lower quadrant pain (principal); R11.0 Nausea; I10 Essential (primary) hypertension
CPT/HCPCS: 36415; 80053; 83690; 96361; 96374; 99285; 74177; 81003; 83735; 85025; 99284; J2405; J3490

== ENCOUNTER 2020-06-06 02:47 | Outpatient (CLI) | payer BC, SELFPAY ==
[2020-06-06 10:26] LABS: Source Nasal/Nares
[2020-06-06 18:19] LABS: COVID-19 PCR Negative (Negative)
== END 2020-06-06 02:48 | disposition home or self-care (01) ==
LOC: LBO 02:47
PROVIDERS: PCP Internal Medicine; Visit Provider Nurse Practitioner
DX: Z20.822 Contact with and (suspected) exposure to COVID-19 (principal); Z01.818 Encounter for other preprocedural examination
CPT/HCPCS: 87635

== ENCOUNTER 2020-07-22 01:09 | Outpatient (CLI) | payer BC, SELFPAY ==
[2020-07-22 11:42] LABS: Source Nasal/Nares
[2020-07-22 20:57] LABS: COVID-19 PCR Negative (Negative)
== END 2020-07-22 01:10 | disposition home or self-care (01) ==
LOC: LBO 01:09
PROVIDERS: PCP Internal Medicine; Visit Provider Nurse Practitioner
DX: Z20.822 Contact with and (suspected) exposure to COVID-19 (principal); Z01.818 Encounter for other preprocedural examination
CPT/HCPCS: 87635

== ENCOUNTER 2021-02-20 10:50 | Emergency (ER) | payer BC, SELFPAY ==
[2021-02-20 10:55] VITALS: BP 176/104; PULSE 88; TEMP 35.4; O2SAT 95
--- NOTE | 2021-02-20 11:00 | RT.EKG_ITS ---
APPROVED REPORT Exam: Resting ECG Reason for Exam: LUQ pain Patient Location: E HR:76 bpm ECG Measurements Heart Rate 76 AXIS UT 145 P 44 QRSd 104 QRS -7 QT 401 T 35 QTc 451 Conclusion Sinus rhythm...normal P axis, V-rate 60- 99 Nonspecific T abnormalities, anterior leads...T <-0.10mV, V2-V4 no STEMI, non-diagnostic EKG I have reviewed and interpreted ECG and agree with software generated interpretation.
--- NOTE | 2021-02-20 11:30 | ED.GENADUL_ITS ---
Discharge Plan Disposition Patient Disposition: HOME Condition: Stable Discharge Details Clinical Impression: Acute pancreatitis Primary Care Provider: Alecia Godfrey ED Provider: Heydi Puga Home Meds and New Rx's Prescriptions: New oxycodone 5 mg capsule 5 mg PO TID PRNQty: 7 RF: 0 metoclopramide HCl [Reglan] 10 mg tablet 10 mg PO Q6H PRNQty: 7 RF: 0 Continued citalopram 40 MG tablet 40 mg PO DAILY RF: 0 simvastatin 40 MG tablet 40 mg PO DAILY RF: 0 losartan-hydrochlorothiazide 1 EACH tablet 1 tab PO DAILY RF: 0 Adult Probiotic 1 EACH capsule 1 tab PO DAILY RF: 0 cyclobenzaprine 10 MG tablet 10 mg PO TID PRN (Reason: Muscle Spasm) Qty: 15 RF: 0 ascorbic acid (vitamin C) [Vitamin C] 500 mg Tablet 500 mg PO DAILY RF: 0 ferrous sulfate [iron] 325 mg (65 mg iron) Tablet 325 mg PO DAILY RF: 0 omega-3 fatty acids Capsule 1,000 mg PO DAILY RF: 0 Discharge Instructions Additional Instructions: Talk to your doctor about your hydrochlorothiazide as this may cause pancreatitis, on CAT scan you have evidence of pancreatitis I recommend IV fluid hydration, clear liquid diet for the next several days until your symptoms resolve I recommend reassessment with your primary care physician within the next 48 hours Your lipase was within normal limits Your other blood work looks within normal limits as well Should you develop persistent nausea with vomiting, inability to hold down p.o. liquids, worsening pain, or persistent fever, I recommend reassessment in the emergency room Stay away from any alcohol consumption Discharge Data Discharge Date/Time-TO BE ENTERED AT DEPARTURE: 02/20/21 14:[address] scan shows evidence of mild pancreatitis Lipase within normal limits, no hepatitis, remainder of patient is likely stable for discharge home at this time if she can tolerate and her pain is controlled which patient feels both been achieved She will need recheck in 24 to 48 hours with her PCP She given low threshold to return with fever, chills, uncontrolled or worsening pain, or should you have new or worsening complaints sequela check do not show significant acute abnormality Patient appears well, she is in no acute distress She feels comfortable being discharged home on antiemetic with pain medication should she need it, she is declined any opiate analgesia in the emergency room She is aware that she will need clear liquid diet I did discuss the case with surgery, Dr. Moreno, who feels that patient is likely stable for discharge home at this time if she can tolerate and her pain is controlled which patient feels both been achieved She will need recheck in 24 to 48 hours with her PCP She given low threshold to return with fever, chills, uncontrolled or worsening pain, or should you have new or worsening complaints sequela check do not show significant acute abnormality Patient appears well, she is in no acute distress I did review her medications, hydrochlorothiazide have the risk of acute pancreatitis associated with it, she will call her PCP to change from this medication and possibly introduce new medication as needed I did review patient's EKG, please see my attendings interpretation Troponin negative without chest pain or any shortness of breath Medical Records Medical records reviewed: Yes I reviewed the patient's medical records. Lab Data Lab results reviewed: Yes I reviewed the patient's lab results. ECG Data Prior ECG tracings: available for review HPI General Mode of arrival: ambulatory . Date/Time Provider Initiated Documentation: 02/20/21 10:55 . Limitations to Documentation: no limitations . Information obtained by: patient . HPI Narrative: This 55-year-old female with history of diverticulitis presents with left flank and left lower quadrant pain. She states this has been going on for the past 3 days. She states she felt bloated. She states she had a temp of 101 days ago but has not had additional fevers. She denies any chest pain or shortness of breath. She denies any dizziness or weakness. She denies any diarrhea. She had nausea without vomiting. Last bowel movement 2 days ago. Denies prior history of bowel movement. Has had prior hysterectomy and appendectomy. Last colonoscopy was reportedly 4 years ago. Related Data Home Medications Medication Instructions Recorded Confirmed Adult Probiotic 1 tab PO DAILY 03/21/17 02/20/21 citalopram 40 mg PO DAILY 03/21/17 02/20/21 cyclobenzaprine 10 mg PO TID PRN #15 tab 03/21/17 02/20/21 losartan-hydrochlorothiazide 1 tab PO DAILY 03/21/17 02/20/21 simvastatin 40 mg PO DAILY 03/21/17 02/20/21 ascorbic acid (vitamin C) [Vitamin 500 mg PO DAILY 02/20/21 02/20/21 C] ferrous sulfate [iron] 325 mg PO DAILY 02/20/21 02/20/21 metoclopramide HCl [Reglan] 10 mg PO Q6H PRN #7 tab 02/20/21 omega-3 fatty acids 1,000 mg PO DAILY 02/20/21 02/20/21 oxycodone 5 mg PO TID PRN #7 cap 02/20/21 Previous Rx's Medication Instructions Recorded cyclobenzaprine 10 mg PO TID PRN #15 tab 03/21/17 metoclopramide HCl [Reglan] 10 mg PO Q6H PRN #7 tab 02/20/21 oxycodone 5 mg PO TID PRN #7 cap 02/20/21 Allergies Allergy/AdvReac Type Severity Reaction Status Date / Time acetaminophen [From Vicodin] Allergy Intermediate Itching Unverified 02/20/21 10:59 hydrocodone [From Vicodin] Allergy Intermediate Itching Unverified 02/20/21 10:59 General Stated Complaint: FlankPain THEE: 3 Review of Systems All systems reviewed & are unremarkable except as noted in HPI and below PFSH All Active Problems (Updated 02/20/21 @ 13:40 by GARETT Montgomery) Acute pancreatitis (Acute) Pain of left heel (Acute) Bone spur of left ankle (Acute) Tear of peroneal tendon of right foot (Acute) Bone spur of right ankle (Acute) Pain of right heel (Acute) Right Achilles tendinitis (Acute) Medical History Bone spur of left ankle HTN (hypertension) Hyperlipemia Pain of left heel Tear of peroneal tendon of right foot Surgical History History of appendectomy History of hysterectomy Hx of cholecystectomy Social History Smoking/Tobacco Use Status: Never Smoking risk assessment performed?: Yes Alcohol Intake: current Alcohol Intake frequency: holidays/special occasions only Drug use: Never Substance use type: does not use Current gender identity: female Do you feel safe at home: Yes Do you feel safe in your relationship?: Yes Exam Const General: cooperative, comfortable and no acute distress HENMT Other: Moist mucous membrane Eyes Other: No icterus Resp Effort & Inspection: normal respiratory effort Auscultation: clear to auscultation bilaterally Cardio Rate: regular rate Rhythm: regular rhythm GI Other: Tenderness with palpation left upper quadrant and left lower quadrant, left flank tenderness, no abdominal bruit or pulsatile mass, no rebound or guarding, no rashes or lesions Skin General skin exam: no rashes or lesions noted Neuro General: patient alert and patient oriented x3 Extrem Other: No calf swelling or tenderness Course Vital Signs Vital signs: Vital Signs Temperature 35.4 C L 02/20/21 10:55 Pulse 88 02/20/21 10:55 Blood Pressure 176/104 H 02/20/21 10:55 Pulse Oximetry 95 02/20/21 10:55 Temperature 35.4 C L 02/20/21 10:55 Temperature Source Skin 02/20/21 10:55 Pulse 88 02/20/21 10:55 Respiratory Effort 02/20/21 11:02 Blood Pressure 176/104 H 02/20/21 10:55 Pulse Oximetry 95 02/20/21 10:55 Oxygen Delivery Method Room Air 02/20/21 10:55 Oxygen Flow Rate 0 02/20/21 10:55 Pain Level 2 02/20/21 11:03 Comment 02/20/21 10:55
[2021-02-20] MEDS: Ondansetron 4 MG/2 ML VIAL IVP (11:41)
[2021-02-20] MEDS: Normal Saline 1,000 ML 1000 ML IV (11:42)
[2021-02-20 11:43] LABS: Abs Immature Grans 0.05 10^3/uL (0.0-0.06); Absolute Basophil Count 0.03 10^3/uL (0.0-0.2); Absolute Lymphocyte Count 1.38 10^3/uL (1.2-3.4); Absolute Monocyte Count 0.58 10^3/uL (0.1-0.8); Basophils % 0.4; Eosinophils % 4.3; HCT 41.8 % (36.0-46.0); HGB 13.2 g/dL (11.2-15.7); Immature Grans % 0.7; Lymphocytes % 19.6; MCH 28.7 pg (27.0-33.0); MCHC 31.6 % (32.0-36.0); MCV 90.9 fL (80-95); MPV 9.3 fL (8.0-11.0); Monocytes % 8.2; Neutrophils % 66.8; Nucleated RBC 0 %; Platelet Count 339 10^3/uL (130-400); RDW 12.9 % (11.7-14.6); RDW-SD 42.4 fL; WBC 7.04 10^3/uL (4.4-10.8)
[2021-02-20 11:49] LABS: Bilirubin Negative (Negative); Blood Small (Negative); Clarity Clear (Clear); Glucose Negative (Negative); Ketones Negative (Negative); Leukocyte Esterase Trace (Negative); Nitrite Negative (Negative); Specific Gravity 1.015 (1.005-1.025); Urobilinogen 0.2 EU/dL (Up TO 0.2); pH 5.5 (5-8)
[2021-02-20 12:00] LABS: ALT 36 U/L (14-59); AST 20 U/L (15-37); Albumin 3.3 g/dL (3.4-5.0); Alkaline Phosphatase 130 U/L (46-116); Anion Gap 8.6 mmol/L (3-11); BUN 16 mg/dL (7-18); Bilirubin, Total 0.4 mg/dL (0.2-1.0); CO2 32.4 mmol/L (21.0-32.0); CREATININE 0.8 mg/dL (0.55-1.02); Chloride 101 mmol/L (98-107); Glucose 145 mg/dL (74-106); Lipase 61 U/L (73-393); Potassium 3.6 mmol/L (3.5-5.1); Sodium 142 mmol/L (136-145); Total Protein 7.9 g/dL (6.4-8.2)
[2021-02-20 12:03] LABS: Troponin I < 50 ng/L (<or=60)
[2021-02-20 12:04] LABS: Bacteria Negative HPF (Negative); C & S Indicated? Yes; Casts Negative LPF (Negative); Crystals Negative HPF (Negative); Epithelial Cells Rare HPF (Negative); Mucus Negative (Negative); RBC 0-2 HPF (0-2); WBC 0-2 HPF (0-5)
--- NOTE | 2021-02-20 12:23 | DI.CT_ITS ---
Exam(s) CT ABDOMEN PELVIS W EXAM: CT ABDOMEN PELVIS W CLINICAL HISTORY: left flank and LUQ/LLQ pain. TECHNIQUE: Imaging Protocol: Axial computed tomography images with coronal and sagittal reformatted images were created and reviewed CONTRAST MATERIAL: Intravenous: Omnipaque 350 Contrast volume:100 ml Oral: yes / no COMPARISON: CT CT ABDOMEN PELVIS W from 03/09/2020 FINDINGS: ABDOMEN: Lung Bases: Normal where visualized. Liver: Enlarged. Moderate fatty infiltration. No measurable mass. Gallbladder and biliary tract: Status post cholecystectomy. No radiodense calculus or dilation. Pancreas: Mildly edematous compared with the previous exam. Slight stranding in the surrounding fat. Findings could indicate mild pancreatitis. Spleen: Normal. Kidneys: Normal size, contour and axis. No radiodense stones or obstructive uropathy. No masses seen. Adrenal glands: No masses seen. Abdominal Aorta: Abdominal portion non-dilated. Stomach and small bowel: Small diverticulum descending duodenum. No wall thickening or dilatation. PELVIS: Bladder: No gross wall thickening. No calculi.No focal mass. Bowel: No obstruction or bowel wall thickening. Normal quantity of stool. Mild diverticulosis. No evidence of diverticulitis. Peritoneal cavity: No ascites, collection or mesenteric inflammatory response. Bones: Within normal limits for age. Reproductive organs: Partial hysterectomy. Lymph nodes: Unremarkable. Impression: Findings suspicious for pancreatitis. Results of this exam have been verbally communicated with emergency department provider. RADIATION DOSE DELIVERED: 1,701.75mGy.cm Total DLP DATA REPOSITORY: All CT scans at this facility are submitted to the National Radiology Data Registry (NRDR) Dose Index Registry (DIR) with the [employer] (ACR). RADIATION OPTIMIZATION: All CT scans at this facility use at least one of these dose optimization te chniques: automated exposure control; mA and/or kV adjustment per patient size (includes targeted exa ms where dose is matched to clinical indication); or iterative reconstruction.
[2021-02-20] MEDS: Omnipaque 350 MG/ML 100 ML BTL IJ (12:41)
[2021-02-20] MEDS: Normal Saline Flush 10 ML SYR IVP (12:42)
[2021-02-20] MEDS: Ketorolac 15 MG/ML VIAL IVP (13:38)
[2021-02-20 14:13] VITALS: BP 142/75; PULSE 68; RESP 18; TEMP 36.8; O2SAT 96
--- NOTE | 2021-02-20 17:19 | NUR.NOTE ---
Nursing Note: PT INFO AND VISIT INFO FAXED TO [facility] TO THE ATTENTION OF MARCO A @ [phone]. MARIANA, ED
== END 2021-02-20 14:11 | disposition home or self-care (01) ==
PROVIDERS: Emergency Provider Physician Assistant; PCP Internal Medicine
DX: K85.90 Acute pancreatitis without necrosis or infection, unspecified (principal); R10.12 Left upper quadrant pain; R10.32 Left lower quadrant pain
CPT/HCPCS: 36415; 80053; 83690; 93005; 96361; 96374; 96375; 99285; 74177; 81003; 81015; 84484; 85025; 87086; 93010; 99284; J0131; J1885; J2405; J3490

== ENCOUNTER 2021-05-11 18:19 | Observation (INO) | payer BC, SELFPAY ==
[2021-05-11] VITALS (45 sets, daily range): BP systolic 119–167; BP diastolic 70–98; PULSE 57–87; RESP 4–21; TEMP 36.5; O2SAT 93–98
--- NOTE | 2021-05-11 18:15 | RT.EKG_ITS ---
APPROVED REPORT Exam: Resting ECG Reason for Exam: Chest Pain Patient Location: E HR:75 bpm ECG Measurements Heart Rate 75 AXIS NE 150 P 53 QRSd 114 QRS -12 QT 403 T 48 QTc 449 Conclusion Sinus rhythm...normal P axis, V-rate 60- 99 t wave inv v2-3
[2021-05-11 18:38] LABS: Abs Immature Grans 0.03 10^3/uL (0.0-0.06); Absolute Basophil Count 0.02 10^3/uL (0.0-0.2); Absolute Eosinophil Count 0.22 10^3/uL (0.0-0.7); Absolute Lymphocyte Count 1.57 10^3/uL (1.2-3.4); Absolute Monocyte Count 0.74 10^3/uL (0.1-0.8); Absolute Neutrophil Count 5.24 10^3/uL (1.2-6.7); Basophils % 0.3; Eosinophils % 2.8; HGB 13.9 g/dL (11.2-15.7); Immature Grans % 0.4; Lymphocytes % 20.1; MCH 29.4 pg (27.0-33.0); MCHC 32.3 % (32.0-36.0); MCV 91.1 fL (80-95); MPV 9.6 fL (8.0-11.0); Monocytes % 9.5; Neutrophils % 66.9; Nucleated RBC 0 %; Platelet Count 320 10^3/uL (130-400); RBC 4.72 10^6/uL (3.93-5.22); RDW 13.2 % (11.7-14.6); RDW-SD 44.9 fL; WBC 7.82 10^3/uL (4.4-10.8)
--- NOTE | 2021-05-11 18:38 | ED.GENADUL_ITS ---
Discharge Plan Disposition Patient Disposition: [facility] IN[facility]IENT Condition: Stable Discharge Details Clinical Impression: Chest pain Admit Date/Time: 05/11/21 23:51 Admit Provider: Juan Snowden Attending Provider: Juan Snowden Primary Care Provider: Alecia Godfrey ED Provider: Swapna Jacob Discharge Data Discharge Date/Time-TO BE ENTERED AT DEPARTURE: 05/12/21 00:38 Medical Decision Making 56-year-old female presents to the ER with chief complaint of intermittent midsternal chest pain for last 2 to 3 days. She reports that these episodes last couple of minutes at the most. She reports some shooting into her back, denies any nausea vomiting diarrhea, diaphoresis, shortness of breath or cough. She reports that these episodes happen at rest as well as randomly throughout the day. She does have a past medical history of high cholesterol, hypertension, surgical history includes cholecystectomy, hysterectomy and appendectomy. Is not this was palpated by me does not necessarily feel like a hernia. She is a non-smoker does not take aspirin daily. Denies any recent long trips in a plane or car. Cardiac work-up ordered including serial troponins and lipase. EKG was reviewed by Dr. Cade Wheat ER attending, old EKG available for review. Please see his official review report. Father had stents placed under the age of 50 Heart score is a 4. Initial labs show no leukocytosis CBC within normal limits, potassium 3.4, BUN 20, creatinine 1.0 GFR 57.56, magnesium slightly low at 1.7 initial troponin less than 50 lipase is 58. Patient is given 400 mg of magnesium oxide p.o. and 40 mEq of potassium p.o. CT CHEST WO 05/11/2019 9:22 AM FINDINGS: Pulmonary arteries: Normal. No pulmonary emboli. Aorta: Unremarkable. No aortic aneurysm. No aortic dissection. Lungs: There is a nodule in the right lower lobe measuring 1.8 cm which appears stable since the remote prior exam. There is some associated calcification within nodule. No consolidative opacity identified. Pleural spaces: Unremarkable. No pneumothorax. No pleural effusion. Heart: Unremarkable. No cardiomegaly. No pericardial effusion. Lymph nodes: Unremarkable. No enlarged lymph nodes. Liver: Hepatic steatosis is present. Gallbladder and bile ducts: Prior cholecystectomy. IMPRESSION: 1. No pulmonary embolus identified. 2. Stable prominent nodule in the right lower lobe. Thank you for allowing us to participate in the care of your patient. Dictated and Authenticated by: Laina Gamino MD 2121: Second troponin is pending. Repeat EKG ordered. Sublingual nitroglycerin ordered due to patient's report of intermittent episodes of chest pain during her stay. Patient was given 2 0.4 mg sublingual nitro and according to staff mine warfare officer this did not change her symptoms at all however it did give her a headache. 500 milligrams Tylenol ordered Second troponin negative repeat EKG shows no change. 2141: Hospitalist paged. 2229: Hospitalist re-paged. Patient had an episode of chest pain which she notified of. This lasted appr oximately 30 seconds. No significant EKG changes noted on the monitor. She is at rest. Due to the patient's atypical presentation and risk factors I do recommend admission for observation and further testing. 4: Spoke with Dr. Snowden regarding patient case and details. He agrees to accept patient for observation. Patient aware of plan and is in agreement. HPI General Mode of arrival: ambulatory . Date/Time Provider Initiated Documentation: 05/11/21 18:19 . Limitations to Documentation: no limitations . Information obtained by: patient . HPI Narrative: 56-year-old female presents to the ER with chief complaint of intermittent midsternal chest pain for last 2 to 3 days. She reports that these episodes last couple of minutes at the most. She reports some shooting into her back, denies any nausea vomiting diarrhea, diaphoresis, shortness of breath or cough. She reports that these episodes happen at rest as well as randomly throughout the day. She does have a past medical history of high cholesterol, hypertension, surgical history includes cholecystectomy, hysterectomy and appendectomy. Is not this was palpated by me does not necessarily feel like a hernia. She is a non-smoker does not take aspirin daily. Denies any recent long trips in a plane or car. Related Data Home Medications Medication Instructions Recorded Confirmed citalopram 40 mg tablet 40 mg PO DAILY 03/21/17 05/11/21 cyclobenzaprine 10 mg tablet 10 mg PO TID PRN #15 tab 03/21/17 05/11/21 lactobacillus combination no.8 3 1 tab PO DAILY 03/21/17 05/11/21 billion cell capsule (Adult Probiotic) losartan 50 mg-hydrochlorothiazide 1 tab PO DAILY 03/21/17 05/11/21 12.5 mg tablet simvastatin 40 mg tablet 40 mg PO DAILY 03/21/17 05/11/21 ascorbic acid (vitamin C) 500 mg 500 mg PO DAILY 02/20/21 05/11/21 tablet (Vitamin C) ferrous sulfate 325 mg (65 mg 325 mg PO DAILY 02/20/21 05/11/21 iron) tablet (iron) metoclopramide HCl 10 mg tablet 10 mg PO Q6H PRN #7 tab 02/20/21 05/11/21 (Reglan) omega-3 fatty acids 1,000 mg PO DAILY 02/20/21 05/11/21 nitroglycerin 0.4 mg sublingual 0.4 mg SUBLINGUAL Q5 MIN PRN X3 05/12/21 tablet PRN #30 tab Previous Rx's Medication Instructions Recorded cyclobenzaprine 10 mg tablet 10 mg PO TID PRN #15 tab 03/21/17 metoclopramide HCl 10 mg tablet 10 mg PO Q6H PRN #7 tab 02/20/21 (Reglan) nitroglycerin 0.4 mg sublingual 0.4 mg SUBLINGUAL Q5 MIN PRN X3 05/12/21 tablet PRN #30 tab Allergies Allergy/AdvReac Type Severity Reaction Status Date / Time hydrocodone [From Vicodin] Allergy Intermediate Itching Unverified 02/20/21 10:59 General Stated Complaint: Chest Pain THEE: 2 Review of Systems All systems reviewed & are unremarkable except as noted in HPI and below Cardiovascular Cardiovascular: Reports chest pain, Reports chest pain at rest and Denies dyspnea Respiratory Respiratory: Denies dyspnea Gastrointestinal Gastrointestinal: Denies diarrhea, Denies nausea and Denies vomiting PFSH All Active Problems Hypomagnesemia (Acute) Hypokalemia (Acute) Chest pain (Acute) Pain of left heel (Acute) Bone spur of left ankle (Acute) Tear of peroneal tendon of right foot (Acute) Bone spur of right ankle (Acute) Pain of right heel (Acute) Right Achilles tendinitis (Acute) Medical History HTN (hypertension) Hyperlipemia Surgical History History of appendectomy History of hysterectomy Hx of cholecystectomy Social History Smoking/Tobacco Use Status: Never Smoking risk assessment performed?: Yes Alcohol Intake: current Alcohol Intake frequency: holidays/special occasions only Drug use: Never Substance use type: does not use Current gender identity: female Do you feel safe at home: Yes Do you feel safe in your relationship?: Yes Exam Narrative Exam Narrative: Constitutional: Alert and oriented x3. Appears stated age. Obese body habitus. Head: Normocephalic, no trauma. Eyes: Pupils PERRL, Red reflex noted, EOM's intact. Eyelids symmetrical without lesions, discharge, or swelling. ENT: Bilateral TM's WNL, External ear normal to inspection, no mastoid TTP, swelling, or erythema, Nasal turbinates WNL, no nasal discharge. Normal dentition, Posterior pharynx WNL, no exudate. Chest: RRR, Normal S1, S2, distal pulses intact. Resp: Lungs clear to auscultation bilaterally, no wheezes, rales, or rhonchi. Abdomen: Soft, non-distended, Normoactive bowel sounds all 4 quads. Musculoskeletal: Normal gait, 5/5 strength to all four extremities. Skin: No suspicious rashes or lesions. Capillary refill less than 2 sec. Neurologic: Cranial nerves II-XII intact. Alert and oriented x 3. Motor: No deficits noted. Sensory: Intact bilaterally all 4 extremities. Reflexes: DTR's intact bilaterally.. Hematologic/Lymphatic: No ecchymosis, no lymphadenopathy. Course Vital Signs Vital signs: Vital Signs Temperature 36.5 C 05/11/21 18:22 Pulse 79 05/11/21 18:22 Respiratory Rate 16 05/11/21 18:22 Blood Pressure 167/98 H 05/11/21 18:22 Pulse Oximetry 96 05/11/21 18:22 Temperature 36.5 C 05/11/21 18:22 Temperature Source Temporal Artery Scan 05/11/21 18:22 Pulse 79 05/11/21 18:22 Respiratory Rate 16 05/11/21 18:22 Respiratory Effort 05/11/21 18:26 Blood Pressure 167/98 H 05/11/21 18:22 Blood Pressure Position Supine 05/11/21 18:22 Pulse Oximetry 96 05/11/21 18:22 Oxygen Delivery Method Room Air 05/11/21 18:22 Oxygen Flow Rate 0 05/11/21 18:22 Pain Level 3 05/11/21 18:22
--- NOTE | 2021-05-11 18:45 | DI.CT_ITS ---
Exam(s) CT CHEST PE CTA EXAM: CT CHEST PE CTA CLINICAL HISTORY: Chest Pain, R/O PE, Sternal lump. TECHNIQUE: Imaging Protocol: Axial CT angiography was performed with multi-slice acquisition and mu lti-planar and/or 3D reconstructions. CONTRAST MATERIAL: Intravenous: Omnipaque 350 Contrast volume:structured data in ml mL COMPARISON: CT CT CHEST WO from 05/11/[address] ABDOMEN PELVIS W from 02/20/2021 FINDINGS: Tracheobronchial tree: Patent where visualized. Pulmonary parenchyma: There is again seen a 1.5 cm nodule in the right lower lobe. There is a centra l calcification within the nodule. There is a stable adjacent 1.1 cm nodule. No new pulmonary nodul es are seen. No pulmonary infiltrates are present. No architectural distortion. Pulmonary Arteries: No evidence of filling defect to suggest pulmonary emboli. Mediastinum and Saige: There is a stable 1.7 partially calcified right hilar lymph node. Visualized thyroid gland: Unremarkable. Pleura: No effusion or pneumothorax. Heart: The heart is not dilated. No coronary artery calcifications are seen. No pericardial effusion. Aorta: Thoracic aorta non-dilated. No evidence of dissection. Upper abdomen: Status post cholecystectomy. Soft tissues: Unremarkable. Bones: Within normal limits for the patient's age. IMPRESSION: 1. No evidence of pulmonary embolism, thoracic aortic dissection or aneurysm. 2. Stable partially calcified right lower lobe pulmonary nodule and partially calcified right hilar l ymph node. RADIATION DOSE DELIVERED: 600.05mGy.cm Total DLP DATA REPOSITORY: All CT scans at this facility are submitted to the National Radiology Data Registry (NRDR) Dose Index Registry (DIR) with the [employer] ([employer]). RADIATION OPTIMIZATION: All CT scans at this facility use at least one of these dose optimization te chniques: automated exposure control; mA and/or kV adjustment per patient size (includes targeted exa ms where dose is matched to clinical indication); or iterative reconstruction.
[2021-05-11 18:49] LABS: Lipase 58 U/L (73-393)
[2021-05-11 18:55] LABS: ALT 42 U/L (14-59); AST 19 U/L (15-37); Alkaline Phosphatase 95 U/L (46-116); Anion Gap 9.7 mmol/L (3-11); BUN 20 mg/dL (7-18); Bilirubin, Total 0.4 mg/dL (0.2-1.0); CO2 26.3 mmol/L (21.0-32.0); Calcium 9.4 mg/dL (8.5-10.1); Chloride 102 mmol/L (98-107); Estimated GFR 57.56 (mL/min/1.73m2); Glucose 91 mg/dL (74-106); Magnesium 1.7 mg/dL (1.8-2.4); Potassium 3.4 mmol/L (3.5-5.1); Sodium 138 mmol/L (136-145); Total Protein 8.3 g/dL (6.4-8.2); Troponin I < 50 ng/L (<or=60)
[2021-05-11] MEDS: Magnesium Oxide 400 MG TAB PO (19:18)
[2021-05-11] MEDS: Potassium Chloride 20 MEQ TABCR 40 MEQ PO (19:18)
[2021-05-11] MEDS: Aspirin 81 MG CHEW 324 MG CH (19:18)
[2021-05-11] MEDS: Omnipaque 350 MG/ML 100 ML BTL IJ (19:33)
[2021-05-11] MEDS: Normal Saline Flush 10 ML SYR IVP (19:34)
--- NOTE | 2021-05-11 20:05 | DI.VRAD_ITS ---
PROCEDURE INFORMATION: Exam: CTA Chest With Contrast Exam date and time: 05/11/2021 7:23 PM Age: 56 years old Clinical indication: Sternal or substernal pain; Additional info: Chest pain, R/O pe, sternal lump feeling TECHNIQUE: Imaging protocol: Computed tomographic angiography of the chest with contrast. 3D rendering (Not supervised by radiologist): MIP and/or 3D reconstructed images were created by the technologist. Radiation optimization: All CT scans at this facility use at least one of these dose optimization techniques: automated exposure control; mA and/or kV adjustment per patient size (includes targeted exams where dose is matched to clinical indication); or iterative reconstruction. Contrast material: OMNI 350; Contrast volume: 100 ml; Contrast route: INTRAVENOUS (IV); COMPARISON: CT CHEST WO 05/11/2019 9:22 AM FINDINGS: Pulmonary arteries: Normal. No pulmonary emboli. Aorta: Unremarkable. No aortic aneurysm. No aortic dissection. Lungs: There is a nodule in the right lower lobe measuring 1.8 cm which appears stable since the remote prior exam. There is some associated calcification within nodule. No consolidative opacity identified. Pleural spaces: Unremarkable. No pneumothorax. No pleural effusion. Heart: Unremarkable. No cardiomegaly. No pericardial effusion. Lymph nodes: Unremarkable. No enlarged lymph nodes. Liver: Hepatic steatosis is present. Gallbladder and bile ducts: Prior cholecystectomy. Bones/joints: Unremarkable. No acute fracture. Soft tissues: Unremarkable. IMPRESSION: 1. No pulmonary embolus identified. 2. Stable prominent nodule in the right lower lobe. Dictated and Authenticated by: Laina Gamino MD. Ordering:STEFAN Barcenas MD
--- NOTE | 2021-05-11 21:15 | RT.EKG_ITS ---
APPROVED REPORT Exam: Resting ECG Reason for Exam: repeat trop Patient Location: E HR:67 bpm ECG Measurements Heart Rate 67 AXIS MT 151 P 48 QRSd 106 QRS -14 QT 427 T 29 QTc 450 Conclusion Sinus rhythm...normal P axis, V-rate 60- 99 Nonspecific T abnormalities, anterior leads...T <-0.10mV, V2-V4
[2021-05-11] MEDS: nitroGLYcerin 0.4 MG TAB SL (21:23)
[2021-05-11] MEDS: Acetaminophen 500 MG TAB PO (21:25)
[2021-05-11 21:32] LABS: Troponin I < 50 ng/L (<or=60)
--- NOTE | 2021-05-11 23:50 | HPE_ITS ---
Date of service: 05/11/21 Time of Service: 23:50 Assessment and Plan Assessment and plan (1) Chest pain: Status: Acute Assessment and plan: Atypical fleeting chest pains lasting less than 60 seconds at a time not associated with any dyspnea palpitations syncope or lightheadedness and not associate with any dyspepsia. Patient has some reproducible sternal tenderness that is not similar to her presenting complaints. Recommend a stress MPI and echocardiogram if these are negative then I would pursue further outpatient work-up including EGD. For now we will continue her on all of her home medica tions and replace her potassium and sodium with supplements. (2) Hypokalemia: Status: Acute Assessment and plan: Secondary to chronic diuretic use. Replace with oral supplement and recheck in the morning. (3) Hypomagnesemia: Status: Acute Assessment and plan: Secondary to chronic diuretic use. Replace with oral supplement and recheck in the morning. History of Present Illness History of Present Illness Chief Complaint: Chest pain Narrative: 56-year-old female non-smoker with history of hypertension hyperlipidemia presents emergency department with 2-day history of intermittent fleeting chest pains lasting 30- 60 secs that time located in the mid sternum sometimes with radiation into her back. Not associate with any shortness of breath or d yspepsia. Patient's never had a cardiac stress test. She does have a family history of premature coronary artery disease her father in his 50s. Evaluation emergency department included routine labs including serial troponin I levels, CBC, CMP, magnesium level. Labs were remarkable for a low magnesium of 1.7, potassium 3.4 (note she takes losartan with hydrochlorothiazide daily for hypertension), rest of CMP was unremarkable CBC was unremarkable troponin I levels were normal x2 sets at less than 50 ng/L. Chest imaging included a CT of the chest with contrast for PE protocol. No evidence of pulmonary embolism or thoracic aortic dissection or aneurysm. She has a stable partially calcified right lower lobe pulmonary nodule and partially calcified right hilar lymph node. Her EKG was notable for some nonspecific T wave abnormalities across the precordial anterior leads V2, V3 and V4. Patient is admitted on observation status for telemetry monitoring overnight and completion of her serial troponin I levels as well as for obtaining an echocardiogram in the nuclear stress MPI in the morning. Review of Systems All systems reviewed & are unremarkable except as noted in HPI and below PFSH All Active Problems (Updated 05/12/21 @ 00:44 by Juan Snowden) Hypomagnesemia (Acute) Hypokalemia (Acute) Chest pain (Acute) Pain of left heel (Acute) Bone spur of left ankle (Acute) Tear of peroneal tendon of right foot (Acute) Bone spur of right ankle (Acute) Pain of right heel (Acute) Right Achilles tendinitis (Acute) Medical History HTN (hypertension) Hyperlipemia Surgical History History of appendectomy History of hysterectomy Hx of cholecystectomy Social History Smoking/Tobacco Use Status: Never Smoking risk assessment performed?: Yes Alcohol Intake: current Alcohol Intake frequency: holidays/special occasions only Drug use: Never Substance use type: does not use Current gender identity: female Do you feel safe at home: Yes Do you feel safe in your relationship?: Yes Meds Allergies and Home Medications Allergies Allergy/AdvReac Type Severity Reaction Status Date / Time hydrocodone [From Vicodin] Allergy Intermediate Itching Unverified 02/20/21 10:59 Home Medications Medication Instructions Recorded Confirmed Type citalopram 40 mg tablet 40 mg PO DAILY 03/21/17 05/11/21 History cyclobenzaprine 10 mg tablet 10 mg PO TID PRN #15 tab 03/21/17 05/11/21 Rx lactobacillus combination no.8 3 1 tab PO DAILY 03/21/17 05/11/21 History billion cell capsule (Adult Probiotic) losartan 50 mg-hydrochlorothiazide 1 tab PO DAILY 03/21/17 05/11/21 History 12.5 mg tablet simvastatin 40 mg tablet 40 mg PO DAILY 03/21/17 05/11/21 History ascorbic acid (vitamin C) 500 mg 500 mg PO DAILY 02/20/21 05/11/21 History tablet (Vitamin C) ferrous sulfate 325 mg (65 mg 325 mg PO DAILY 02/20/21 05/11/21 History iron) tablet (iron) metoclopramide HCl 10 mg tablet 10 mg PO Q6H PRN #7 tab 02/20/21 05/11/21 Rx (Reglan) omega-3 fatty acids 1,000 mg PO DAILY 02/20/21 05/11/21 History Exam Narrative Exam Narrative: Pleasant middle-aged female lying on the emergency room gurney sitting upright position alert and oriented person place time circumstance. HEENT is unremarkable Neck is supple nontender no JVD Lungs are clear to auscultation Heart slightly bradycardic in the 50s no murmur rub or gallop. Rhythm is regular Abdomen is obese soft and nontender no epigastric tenderness. Chest wall slightly tender over the lower sternum and xiphoid process but does not elicit the kind of fleeting chest pain she was experiencing earlier this evening. Lower extremities without peripheral cyanosis or edema no calf tenderness. Normal pedal pulses Neuro exam is grossly intact no focal deficits Results Labs Result diagrams: 05/11/21 18:30 05/11/21 18:30 Labs: Laboratory Results - last 24 hr 05/11/21 05/11/21 05/11/21 18:30 18:30 18:30 WBC 7.82 RBC 4.72 Hgb 13.9 Hct 43.0 MCV 91.1 MCH 29.4 MCHC 32.3 RDW 13.2 Plt Count 320 MPV 9.6 Immature Gran % 0.4 Neutrophils % 66.9 Lymphocytes % 20.1 Monocytes % 9.5 Eosinophils % 2.8 Basophils % 0.3 Nucleated RBC % 0 Absolute Neutrophils 5.24 Absolute Lymphocytes 1.57 Absolute Monocytes 0.74 Absolute Eosinophils 0.22 Absolute Basophils 0.02 Sodium 138 Potassium 3.4 L Chloride 102 Carbon Dioxide 26.3 Anion Gap 9.7 BUN 20 H Creatinine 1.0 Estimated GFR/1.73 m2 57.56 Glucose 91 Calcium 9.4 Magnesium 1.7 L Total Bilirubin 0.4 AST 19 ALT 42 Alkaline Phosphatase 95 Troponin I < 50 Total Protein 8.3 H Albumin 4.0 Lipase 58 05/11/21 21:13 WBC RBC Hgb Hct MCV MCH MCHC RDW Plt Count MPV Immature Gran % Neutrophils % Lymphocytes % Monocytes % Eosinophils % Basophils % Nucleated RBC % Absolute Neutrophils Absolute Lymphocytes Absolute Monocytes Absolute Eosinophils Absolute Basophils Sodium Potassium Chloride Carbon Dioxide Anion Gap BUN Creatinine Estimated GFR/1.73 m2 Glucose Calcium Magnesium Total Bilirubin AST ALT Alkaline Phosphatase Troponin I < 50 Total Protein Albumin Lipase Last Vital Signs Temp 36.5 C 05/11/21 18:22 Pulse 59 L 05/11/21 23:01 Resp 18 05/11/21 23:20 BP 137/81 05/11/21 23:01 Pulse Ox 95 05/11/21 23:20
[2021-05-12] VITALS (7 sets, daily range): BP systolic 122–141; BP diastolic 80–85; PULSE 51–86; RESP 16–18; TEMP 36–36.4; O2SAT 95–97
[2021-05-12 00:19] LABS: Source Nasal/Nares
[2021-05-12 00:40] LABS: Anion Gap 7.4 mmol/L (3-11); BUN 18 mg/dL (7-18); CO2 26.6 mmol/L (21.0-32.0); CREATININE 0.8 mg/dL (0.55-1.02); Calcium 9.1 mg/dL (8.5-10.1); Chloride 105 mmol/L (98-107); Glucose 92 mg/dL (74-106); Potassium 3.7 mmol/L (3.5-5.1); Sodium 139 mmol/L (136-145)
[2021-05-12 00:48] LABS: Troponin I < 50 ng/L (<or=60)
[2021-05-12 00:56] LABS: COVID-19 PCR Negative (Negative)
[2021-05-12] MEDS: MAGNESIUM SULFATE 1 GM/100 ML BAG IVPB (01:34)
[2021-05-12 06:59] LABS: HCT 42.4 % (36.0-46.0); HGB 13.3 g/dL (11.2-15.7); MCH 28.9 pg (27.0-33.0); MCHC 31.4 % (32.0-36.0); MPV 9.7 fL (8.0-11.0); Platelet Count 269 10^3/uL (130-400); RBC 4.61 10^6/uL (3.93-5.22); RDW 13.3 % (11.7-14.6); RDW-SD 44.9 fL; WBC 4.76 10^3/uL (4.4-10.8)
--- NOTE | 2021-05-12 07:15 | RT.EKG_ITS ---
APPROVED REPORT Exam: Resting ECG Reason for Exam: follow up chest pain Patient Location: I HR:58 bpm ECG Measurements Heart Rate 58 AXIS IA 158 P 71 QRSd 118 QRS -10 QT 456 T 59 QTc 448 Conclusion Sinus rhythm...normal P axis, V-rate 50- 99 Nonspecific intraventricular conduction delay...QRSd >115mS, not LBBB/RBBB Nonspecific T abnormalities, anterior leads...T <-0.10mV, V2-V4 Artifact in lead(s) I,III,aVR,aVL,aVF,V1,V3,V4,V5,V6
[2021-05-12 07:22] LABS: Calculated LDL 95 mg/dL (<100); Cholesterol 154 mg/dL (<200); HDL Cholesterol 37 mg/dL (40-60); Triglyceride 112 mg/dL (<150)
--- NOTE | 2021-05-12 08:00 | DI.US_ITS ---
APPROVED REPORT EXAM: Comprehensive 2D, Doppler, and color-flow Echocardiogram Patient Location: In-Patient Room/Bed: 212 [employer] Counselor: Alyx Desir RDCS (AE) Indications: Chest pain Other Information Study Quality: Adequate. Technically limited study due to body habitus. Conclusion Normal left ventricular wall thickness and chamber size. Estimated ejection fraction is 55%. Wall m otion is normal Normal right ventricular size and systolic function Both atria are normal in size There is no structural or hemodynamically significant valvular disease Dilated ascending aorta measuring 4.04 cm Wall motion Left Ventricle Left ventricle is mildly dilated. The left ventricular systolic function is normal. The left ventricu lar ejection fraction is within the normal range. There is normal left ventricular wall thickness. Th ere is normal LV segmental wall motion. There is no ventricular septal defect visualized. LVEF is 55% . Right Ventricle The right ventricle is normal size. The right ventricular systolic function is normal. The RVSP is 19 .3 mmHg. Atria The left atrium size is normal. The right atrium size is normal. The interatrial septum is intact wit h no evidence for an atrial septal defect. Aortic Valve The aortic valve is normal in structure. Aortic valve is trileaflet. There is no aortic valvular sten osis. No aortic regurgitation is present. Mitral Valve The mitral valve is normal in structure. No evidence of mitral valve stenosis. Mild mitral regurgitat ion. Tricuspid Valve The tricuspid valve is normal in structure. There is no tricuspid valve stenosis. Trace to mild tricu spid regurgitation. Pulmonic Valve The pulmonary valve is normal in structure. There is no pulmonic valvular stenosis. Trace pulmonic re gurgitation. Great Vessels The aortic root is normal in size. The ascending aorta is moderately dilated. Aortic arch is not well visualized. IVC is normal in size and collapses >50% with inspiration. Pericardium There is no pericardial effusion. 2D Dimensions IVSD d PLAX 0.96 cm F: 0.6-1.0 LV Vol A2C d MOD 147.1 mL LVPW d PLAX 0.96 cm F: 0.6 - 1.0 LV Vol A4C d MOD 148.5 mL LVID d PLAX 5.45 cm F: 3.8 - 5.2 LA vol/ BSA A2C s A-L 26.6 mL/m2 LVDs 3.90 cm F: 2.2 - 3.5 LA vol/ BSA A4C s A-L 27.8 mL/m2 Ao Root d 3.34 cm F: 2.7 - 3.3 LA Vol/ BSA Biplane s A-L 28.9 mL/m2 RA Area A4C 15.93 cm2 LA Area A4C s MOD 22.45 cm2 RA Vol/ BSA A4C s A-L 18.6 mL/m2 LA Area A2C s MOD 20.67 cm2 Ao Asc Diam d 4.04 cm F: 2.3 - 3.1 LV EF A4C MOD 50.9 % LV EF Teichholz 53.3 % LV EF A2C MOD 55.5 % LVEF (Bhatti's) 53.41 % F: 54 - 74 LV EF Biplane MOD 53.4 % LV Volume 104.70 mL F: 46 - 106 SV 79.25 mL LV Volume Index 43.08 mL/m2 F: 29 - 61 SV Index 32.59 mL/m2 LV Vol Biplane MOD 148.4 mL FS 27.75 % M-Mode TAPSE 1.81 cm (M/F) >1.7 LV Diastology MV E' medial 0.059 (>0.07 m/s) E/A Ratio 1.1 LV E/e MED 15.05 (<14) MV E Vmax 0.90 (0.4-1.3 m/s) MV E' lateral 0.063 (>0.1 m/s) MV A Vmax 0.80 (0.4-1.3 m/s) LV E/e LAT 14.25 (<14) MV E/A Ratio 1.11 MV E/E' medial 15.07 MV E/E' lateral 14.29 Aortic Valve LVOT Area 2.99 cm2 AoV Area Vmax 2.38 cm2 LVOT Vmax 1.18 m/s AoV Area/ BSA (Vmax) 0.98 cm2/m2 LVOT Mean Tarik. 0.75 m/s HENRIETTA Mean Tarik. 2.17 cm2 LVOT Peak Grad 5.6 mmHg HENRIETTA Mean Tarik. Index 0.89 cm2/m2 LVOT Mean Grad 2.7 mmHg LVOT VTI 0.274 m LVOT Diam s 1.95 cm AoV Vmax 1.49 m/s Velocity Ratio 0.79 AoV Mean Tarik. 1.03 m/s AoV Peak Grad 8.8 mmHg LVOT SV 81.98 mL AoV Mean Grad 4.8 mmHg AoV VTI 0.317 m AoV Area VTI 2.58 cm2 AoV Area/ BSA (VTI) 1.06 cm/m2 Mitral Valve MV DT 210 (160-240 msec) MV PHT 61 msec MV Area PHT 3.61 cm2 MV VTI 0.281 m MV Area VTI 2.92 (4.0-6.0 cm2) Pulmonary Valve PV Vmax 1.04 (0.5-1.5 m/s) RVOT Peak Gr. 1.32 mmHg PV Peak Grad 4.3 mmHg RVOT Mean Gr. 0.65 mmHg PV Mean Grad 2.2 mmHg RVOT VTI 0.143 m PV VTI 0.226 m RVOT Vmax 0.57 m/s Tricuspid Valve TR Peak Grad 16.2 mmHg TR Vmax 2.02 m/s RA Pressure 3.00 mmHg RVSP (TR) 19.3 mmHg
[2021-05-12] MEDS: Enoxaparin 40 MG/0.4 ML SYR SC (08:07)
[2021-05-12] MEDS: Normal Saline Flush 10 ML SYR IVP (08:08)
[2021-05-12] MEDS: hydroCHLOROthiazide 12.5 MG TAB PO (08:09)
[2021-05-12] MEDS: Potassium Chloride 20 MEQ TABCR PO (08:09)
[2021-05-12] MEDS: Losartan 50 MG TAB PO (08:09)
[2021-05-12] MEDS: Citalopram 20 MG TAB 40 MG PO (08:09)
[2021-05-12] MEDS: Omega-3 Fatty Acids 1000 MG CAP PO (08:10)
[2021-05-12] MEDS: Ascorbic Acid 500 MG TAB PO (08:10)
[2021-05-12] MEDS: Lactobacillus Acidophilus CAP 1 CAP PO (08:10)
[2021-05-12] MEDS: Ferrous Sulfate 325 MG TAB PO (08:10)
[2021-05-12] MEDS: Simvastatin 40 MG TAB PO (08:10)
[2021-05-12] MEDS: Magnesium Oxide 400 MG TAB PO (08:10)
--- NOTE | 2021-05-12 11:56 | DSE_ITS ---
Date of service: 05/12/21 Time of Service: 11:57 DS: Diagnosis Discharge Diagnosis (1) Chest pain: Status: Acute Asessment and Plan: Patient was admitted with 2 to 3 days of intermittent chest pain. Serial troponins were negative. Serial EKGs showed some nonspecific T wave changes. An echocardiogram preliminarily shows no wall motion abnormalities, ejection fraction 55.9%. She had no recurrent chest pain. Discharged with the availability of sublingual nitro. Plan is for outpatient MPI study (2) Hypokalemia: Status: Acute Asessment and Plan: Potassium was replaced. Potassium at the time of discharge is 3.7 (3) Hypomagnesemia: Status: Acute Asessment and Plan: Magnesium was replaced. Magnesium at the time of discharge 2.0 Discharge Plan Disposition Patient Disposition: HOME Condition: Stable Discharge Details Reason For Visit: Chest Pain Admit Date/Time: 05/11/21 23:51 Admit Provider: Juan Snowden Attending Provider: Juan Snowden Primary Care Provider: Alecia Godfrey Hospital Course Hospital Course: 56-year-old woman admitted acutely because of stuttering chest pain over the past 2 to 3 days. She was admitted to [facility] on telemetry. Overnight telemetry showed no abnormality. Her serial troponins came back negative. She had a CT angiogram that was negative. She had a total of 3 EKGs that did show some T wave inversion V2 through V4 that was deemed nonspecific. No other acute changes. Lipid panel showed cholesterol 154 LDL 95 HDL 37 triglycerides 58. Hemoglobin A1c 6.0. Plan is for an outpatient MPI test. Patient states she can walk on a treadmill. Home Meds and New Rx's Prescriptions: New nitroglycerin 0.4 mg Tablet, Sublingual 0.4 mg sublingual Q5 MIN PRN X3 PRNQty: 30 0RF Continued citalopram 40 MG tablet 40 mg PO DAILY 0RF simvastatin 40 MG tablet 40 mg PO DAILY 0RF losartan-hydrochlorothiazide 1 EACH tablet 1 tab PO DAILY 0RF Adult Probiotic 1 EACH capsule 1 tab PO DAILY 0RF cyclobenzaprine 10 MG tablet 10 mg PO TID PRN (Reason: Muscle Spasm) Qty: 15 0RF ascorbic acid (vitamin C) [Vitamin C] 500 mg Tablet 500 mg PO DAILY 0RF ferrous sulfate [iron] 325 mg (65 mg iron) Tablet 325 mg PO DAILY 0RF omega-3 fatty acids Capsule 1,000 mg PO DAILY 0RF metoclopramide HCl [Reglan] 10 mg tablet 10 mg PO Q6H PRNQty: 7 0RF Discharge Instructions Instructions: Angina (DC) Stand Alone Forms: Nursing Discharge Form Referrals: [facility] Radiology [Other] (Office will call you with appointment.) Alecia Godfrey [Primary Care Provider] - 05/23/21 1:15 pm Activity:: Activity as Tolerated Equipment/Supplies:: No Equipment Needed Diet:: As Tolerated Discharge Orders Discharge Orders: Discharge Order (Routine); Ordered 05/12/21 Ordered By: Shady Dill Other Ambulatory Orders: NM MPI rest & stress grp (Routine) Timeframe: 1 Week Facility: [facility] - Location: DIAGNOSTIC IMAGING Ordered By: Shady Dill DS: Summary Time Spent with Patient providing and/or coordinating discharge services: Greater than 30 minutes Status at Discharge Functional status at discharge: independent ambulation Overall status at discharge: patient is back to baseline Mental Status: mental status grossly normal Speech and Movement: speech and movement normal Mood: congruent mood Affect: normal affect Exam Narrative Exam Narrative: Exam on the day of discharge she was in no apparent distress. She was pleasant and interactive. Her lung exam was completely clear on the right and left. Heart sounds were strong and regular. Abdomen was overall nontender. She had no lower extremity edema. Neurologically there were no focal deficits. Psych Mental Status: mental status grossly normal Speech and Movement: speech and movement normal Mood: congruent mood Affect: normal affect DS: Data Vitals/I&O Vitals and I&O: Vital Signs Temperature 36.2 C L 05/12/21 09:10 Temperature Source Tympanic 05/12/21 09:10 Pulse 51 L 05/12/21 09:52 Pulse Rhythm Regular 05/12/21 08:15 Pulse 62 05/11/21 23:20 Respiratory Rate 16 05/12/21 09:10 Respiratory Effort 05/12/21 08:15 Respiratory Depth Normal 05/12/21 08:15 Respiratory Pattern Normal 05/12/21 08:15 Blood Pressure 133/85 05/12/21 09:10 Blood Pressure Mean 95 05/11/21 23:01 Blood Pressure Position Supine 05/11/21 18:22 Pulse Oximetry 97 05/12/21 09:10 Oxygen Delivery Method Room Air 05/12/21 09:10 Oxygen Flow Rate 0 05/12/21 09:10 Pain Level 0 05/12/21 09:10 Comment 05/12/21 00:53 Intake & Output 05/11/21 05/11/21 05/12/21 11:59 23:59 11:59 Intake Total 240 / 240 1020 / 1020 Output Total 1300 / 1300 Balance 240 / 240 -280 / -280 Weight 136.7 kg 132.2 kg Intake: Oral 240 / 240 1020 / 1020 Output: Urine 1300 / 1300 Other: Urine Color Yellow Urine Appearance Clear Urine Odor Normal Voiding Methods Toilet Data Completed and Pending Completed studies during hospitalization [Text1]: EKGs x3 showed nonspecific T wave abnormality anteriorly. No ischemic changes. Pending studies at discharge: Formal reading of echocardiogram by cardiology is pending Labs on day of discharge: Labs from last 24 hours 05/12/21 05/12/21 05/12/21 06:42 06:42 06:42 WBC 4.76 D RBC 4.61 Hgb 13.3 Hct 42.4 MCV 92.0 MCH 28.9 MCHC 31.4 L RDW 13.3 Plt Count 269 MPV 9.7 Immature Gran % Neutrophils % Lymphocytes % Monocytes % Eosinophils % Basophils % Nucleated RBC % Absolute Neutrophils Absolute Lymphocytes Absolute Monocytes Absolute Eosinophils Absolute Basophils Sodium Potassium Chloride Carbon Dioxide Anion Gap BUN Creatinine Estimated GFR/1.73 m2 Glucose Hemoglobin A1c 6.0 H Calcium Magnesium Total Bilirubin AST ALT Alkaline Phosphatase Troponin I Total Protein Albumin Triglycerides 112 Total Cholesterol 154 LDL Cholesterol, Calc 95 HDL Cholesterol 37 L Lipase COVID-19 Source SARS-CoV-2 (PCR) 05/12/21 05/12/21 05/12/21 00:20 00:20 00:15 WBC RBC Hgb Hct MCV MCH MCHC RDW Plt Count MPV Immature Gran % Neutrophils % Lymphocytes % Monocytes % Eosinophils % Basophils % Nucleated RBC % Absolute Neutrophils Absolute Lymphocytes Absolute Monocytes Absolute Eosinophils Absolute Basophils Sodium 139 Potassium 3.7 Chloride 105 Carbon Dioxide 26.6 Anion Gap 7.4 BUN 18 Creatinine 0.8 Estimated GFR/1.73 m2 >= 60.00 Glucose 92 Hemoglobin A1c Calcium 9.1 Magnesium 2.0 Total Bilirubin AST ALT Alkaline Phosphatase Troponin I < 50 Total Protein Albumin Triglycerides Total Cholesterol LDL Cholesterol, Calc HDL Cholesterol Lipase COVID-19 Source Nasal/Nares SARS-CoV-2 (PCR) Negative 05/11/21 05/11/21 05/11/21 21:13 18:30 18:30 WBC 7.82 RBC 4.72 Hgb 13.9 Hct 43.0 MCV 91.1 MCH 29.4 MCHC 32.3 RDW 13.2 Plt Count 320 MPV 9.6 Immature Gran % 0.4 Neutrophils % 66.9 Lymphocytes % 20.1 Monocytes % 9.5 Eosinophils % 2.8 Basophils % 0.3 Nucleated RBC % 0 Absolute Neutrophils 5.24 Absolute Lymphocytes 1.57 Absolute Monocytes 0.74 Absolute Eosinophils 0.22 Absolute Basophils 0.02 Sodium Potassium Chloride Carbon Dioxide Anion Gap BUN Creatinine Estimated GFR/1.73 m2 Glucose Hemoglobin A1c Calcium Magnesium Total Bilirubin AST ALT Alkaline Phosphatase Troponin I < 50 Total Protein Albumin Triglycerides Total Cholesterol LDL Cholesterol, Calc HDL Cholesterol Lipase 58 COVID-19 Source SARS-CoV-2 (PCR) 05/11/21 18:30 WBC RBC Hgb Hct MCV MCH MCHC RDW Plt Count MPV Immature Gran % Neutrophils % Lymphocytes % Monocytes % Eosinophils % Basophils % Nucleated RBC % Absolute Neutrophils Absolute Lymphocytes Absolute Monocytes Absolute Eosinophils Absolute Basophils Sodium 138 Potassium 3.4 L Chloride 102 Carbon Dioxide 26.3 Anion Gap 9.7 BUN 20 H Creatinine 1.0 Estimated GFR/1.73 m2 57.56 Glucose 91 Hemoglobin A1c Calcium 9.4 Magnesium 1.7 L Total Bilirubin 0.4 AST 19 ALT 42 Alkaline Phosphatase 95 Troponin I < 50 Total Protein 8.3 H Albumin 4.0 Triglycerides Total Cholesterol LDL Cholesterol, Calc HDL Cholesterol Lipase COVID-19 Source SARS-CoV-2 (PCR) PFSH All Active Problems Hypomagnesemia (Acute) Hypokalemia (Acute) Chest pain (Acute) Pain of left heel (Acute) Bone spur of left ankle (Acute) Tear of peroneal tendon of right foot (Acute) Bone spur of right ankle (Acute) Pain of right heel (Acute) Right Achilles tendinitis (Acute) Medical History HTN (hypertension) Hyperlipemia Surgical History History of appendectomy History of hysterectomy Hx of cholecystectomy Social History Smoking/Tobacco Use Status: Never Smoking risk assessment performed?: Yes Alcohol Intake: current Alcohol Intake frequency: holidays/special occasions only Drug use: Never Substance use type: does not use Current gender identity: female Do you feel safe at home: Yes Do you feel safe in your relationship?: Yes
--- NOTE | 2021-05-12 12:49 | NUR.NOTE ---
Shortly after completing MRI patient vomited 100ml of fluid but recovered quickly. Patient now in his room and enjoyed a half grill cheese sandwich and some cola and vanilla ice cream. Patient tolerated same well.Nursing Note:
== END 2021-05-12 13:10 | disposition home or self-care (01) ==
LOC: ER 05-12 00:05 → MS 05-12 00:47
PROVIDERS: Admitting Provider Internal Medicine; Emergency Provider Registered Nurse Emergency; PCP Internal Medicine; Visit Provider Internal Medicine
DX: R07.89 Other chest pain (principal); E83.42 Hypomagnesemia; E87.6 Hypokalemia; I10 Essential (primary) hypertension; E78.5 Hyperlipidemia, unspecified; Z82.49 Family history of ischemic heart disease and other diseases of the circulatory system; R94.31 Abnormal electrocardiogram [ECG] [EKG]
CPT/HCPCS: 36415; 71275; 80048; 80053; 80061; 83690; 85027; 87635; 93005; 93306; 99285; J1650; 83036; 83735; 84484; 85025; 93010; 99217; 99219; J3475; J3490

== ENCOUNTER 2021-06-21 01:13 | Outpatient (CLI) | payer BC, SELFPAY ==
[2021-06-21 13:00] LABS: Ferritin 159 ng/mL (8-252)
[2021-06-22 09:37] LABS: Transferrin 244 mg/dL (201-352)
== END 2021-06-21 01:14 | disposition home or self-care (01) ==
PROVIDERS: PCP Internal Medicine; Visit Provider Psychiatry & Neurology Psychiatry
DX: E83.19 Other disorders of iron metabolism (principal)
CPT/HCPCS: 36415; 82728; 84466

== ENCOUNTER 2021-07-06 03:49 | Outpatient (CLI) | payer BC, SELFPAY ==
[2021-07-06 12:44] LABS: Iron 52 ug/dL (50-170); Total Iron Binding Capacity 319 ug/dL (250-450); Transferrin Sat 16 % (15-50)
[2021-07-06 12:49] LABS: Ferritin 149 ng/mL (8-252)
== END 2021-07-06 03:50 | disposition home or self-care (01) ==
LOC: LOS 03:49
PROVIDERS: PCP Internal Medicine; Visit Provider Internal Medicine Hematology & Oncology
DX: E83.19 Other disorders of iron metabolism (principal)
CPT/HCPCS: 36415; 82728; 83540; 83550

== ENCOUNTER 2021-09-25 03:36 | Outpatient (CLI) | payer BC, SELFPAY ==
[2021-09-25 12:41] LABS: Total Iron Binding Capacity 338 ug/dL (250-450)
[2021-09-25 13:01] LABS: Ferritin 197 ng/mL (8-252)
[2021-09-26 08:42] LABS: Transferrin 251 mg/dL (201-352)
== END 2021-09-25 03:37 | disposition home or self-care (01) ==
LOC: LOS 03:37
PROVIDERS: PCP Internal Medicine; Visit Provider Psychiatry & Neurology Psychiatry
DX: E83.19 Other disorders of iron metabolism (principal)
CPT/HCPCS: 36415; 82728; 83550; 84466

== ENCOUNTER 2022-01-03 10:35 | Emergency (ER) | payer BC, SELFPAY ==
[2022-01-03 10:39] VITALS: BP 143/91; PULSE 79; RESP 18; TEMP 36.5; O2SAT 97
--- NOTE | 2022-01-03 10:44 | W.ED.GENAD ---
Discharge Plan Disposition Patient Disposition: Home Condition: Stable Discharge Details Clinical Impression: Cephalgia Primary Care Provider: Alecia Godfrey ED Provider: Juan Mancini Home Meds and New Rx's Prescriptions: New prednisone 20 mg tablet 60 mg PO DAILY 7 Days Qty: 21 0RF Continued simvastatin 40 MG tablet 40 mg PO DAILY cyclobenzaprine 10 MG tablet 10 mg PO TID PRN (Reason: Muscle Spasm) Qty: 15 0RF ascorbic acid (vitamin C) [Vitamin C] 500 mg Tablet 500 mg PO DAILY ferrous sulfate [iron] 325 mg (65 mg iron) Tablet 325 mg PO DAILY omega-3 fatty acids Capsule 1,000 mg PO DAILY metoclopramide HCl [Reglan] 10 mg tablet 10 mg PO Q6H PRNQty: 7 0RF nitroglycerin 0.4 mg Tablet, Sublingual 0.4 mg sublingual Q5 MIN PRN X3 PRNQty: 30 0RF citalopram 20 mg Tablet 20 mg PO DAILY losartan-hydrochlorothiazide 100-12.5 mg Tablet 1 tab PO DAILY Discharge Instructions Instructions: General Headache (ED), Temporal Arteritis (ED) Additional Instructions: Your work-up today does not reveal any obvious emergent process based upon your presentation, elevated inflammatory markers, etc., concern for temporal arteritis. As we discussed, I will initiate steroid therapy now. You would like to pursue your work-up through your [facility] PCP. It is imperative that you contact them later today or first thing tomorrow to discuss your ER presentation, work-up, and need for outpatient reevaluation. We discussed that an outpatient biopsy and/or ultrasound will be likely indicated for further work-up and if negative then referral to neurology may be indicated for further evaluation of your ongoing symptoms. Please watch for new or worsening symptoms and return immediately to the ER. Medical Decision Making This is a 56-year-old female who presents complaining of a left-sided frontal headache intermittent for 1 month, occasionally goes past midline. Now over the past 5 days she reports a sharp pain to the left side of her head again this is intermittent but when present feels paresthesias across her entire face. Reports occasionally some discomfort behind her left ear. She has taken [id number] medication with some relief of her symptoms. She contacted her PCP who recommended coming to the ER for evaluation of potential CVA, if unremarkable will plan to follow-up with her PCP as an outpatient. Clinically she appears well, nontoxic. Hemodynamically stable. No history of migraines. She is neurologically intact. She does have some left-sided producible discomfort. Plan is to obtain routine screening laboratory values including inflammatory markers as temporal arteritis is on my differential. Plan is to obtain CT imaging of her brain as well as a CTA of her neck and brain. Patient is comfortable with this plan and has no additional questions or concerns for this work-up. We discussed her laboratory values, elevated inflammatory markers. This certainly increases the suspicion for temporal arteritis. We discussed that the neck step would be a temporal artery biopsy, patient would like to pursue this through her PCP and surgical team at [facility]. Awaiting CT and CTA CT CTA both unremarkable per radiology Discussed work-up with patient. Given her left-sided headache, discomfort is reproducible, elevated inflammatory markers, etc., we discussed initiating treatment with steroids. We will provide 60 mg for the next 7 days, patient would like to pursue outpatient work-up through her PCP and through her [facility] team. Discussed the importance of contacting her PCP later today as they will need to set her up for a biopsy and/or ultrasound as well as continue her steroids and potentially taper them based upon her response to the steroids Strict discharge and return precautions were provided. Patient understands, is agreeable to this plan, and has no additional questions or concerns upon discharge. This documentation was generated using [employer] system, please disregard any oddities of phrase or misspellings. Medical Records Medical records reviewed: Yes I reviewed the patient's medical records. Imaging Data Radiologic Study: Attestation: I personally reviewed and interpreted this imaging study as follows: Imaging: CT Scan Radiologist's impression: Exam(s) CT BRAIN NECK CTA EXAM: CT BRAIN NECK CTA CLINICAL HISTORY: Headache, paresthesias. TECHNIQUE: Imaging Protocol: Axial CT angiography was performed with multi-slice acquisition and multi-planar and 3D reconstructions. CONTRAST MATERIAL: Intravenous: Omnipaque 350 Contrast volume:structured data in ml COMPARISON: CT CT CHEST PE CTA from 05/11/2021 FINDINGS: CT Head W/O and W contrast: Ventricles and Extra axial spaces: Normal in size and morphology for the patient's age. Hemorrhage: None. Cerebral parenchyma: Normal. Midline shift: None. Brainstem/Cerebellum: Normal. Calvarium: Hyperostosis frontalis interna. Visualized Paranasal sinuses/Mastoids: Clear. Soft Tissues: Unremarkable. Enhancement: Normal. CTA Brain W: Internal Carotid Arteries: Petrous: Normal. Cavernous: Normal. Cerebral: Normal. Middle Cerebral Arteries: Right: No aneurysm, occlusion or significant stenosis. Left: No aneurysm, occlusion or significant stenosis. Anterior Cerebral Arteries: Right: No aneurysm, occlusion or significant stenosis. Left: No aneurysm, occlusion or significant stenosis. Posterior cerebral Arteries: Right: No aneurysm, occlusion or significant stenosis. Left: No aneurysm, occlusion or significant stenosis. Vertebral Arteries: Right: No aneurysm, occlusion or significant stenosis. Left: No aneurysm, occlusion or significant stenosis. Basilar Artery: No aneurysm, occlusion or significant stenosis. CTA Neck W: Common Carotid: Right: Minimal plaque at bulb. No aneurysm, occlusion or significant stenosis. Left: Minimal plaque at bulb. No aneurysm, occlusion or significant stenosis. External Carotid: Right: No aneurysm, occlusion or significant stenosis. Left: No aneurysm, occlusion or significant stenosis. Internal Carotid: Right: Tortuous. No aneurysm, occlusion or significant stenosis. Left: Tortuous. No aneurysm, occlusion or significant stenosis. Vertebral Artery: Right: No aneurysm, occlusion or significant stenosis. Left: No aneurysm, occlusion or significant stenosis. Lung Apices: Normal. Bones: Degenerative changes in the cervical spine. Soft Tissues: Normal. IMPRESSION: 1. Normal CTA examination of the [place]. 2. Unremarkable CT Head. 3. Minimal plaque at the common carotid bulbs. Tortuous bilateral internal carotid arteries without evidence of stenosis. Findings were called to the emergency department provider. Lab Data Lab results reviewed: Yes I reviewed the patient's lab results. Labs: Laboratory Tests Range/Units 01/03/22 01/03/22 01/03/22 11:18 11:18 11:18 WBC (4.4-10.8) 10^3/uL 5.33 RBC (3.93-5.22) 10^6/uL 4.85 Hgb (11.2-15.7) g/dL 14.4 Hct (36.0-46.0) % 44.6 MCV (80-95) fL 92 MCH (27.0-33.0) pg 29.7 MCHC (32.0-36.0) % 32.3 RDW (11.7-14.6) % 12.8 Plt Count (130-400) 10^3/uL 315 MPV (8.0-11.0) fL 9.6 Immature Gran % 0.6 Neutrophils % 63.5 Lymphocytes % 21.2 Monocytes % 9.0 Eosinophils % 4.9 Basophils % 0.8 Nucleated RBC % (0.0-0.3) % 0.0 Absolute Neutrophils (1.2-6.7) 10^3/uL 3.39 Absolute Lymphocytes (1.2-3.4) 10^3/uL 1.13 L Absolute Monocytes (0.1-0.8) 10^3/uL 0.48 Absolute Eosinophils (0.0-0.7) 10^3/uL 0.26 Absolute Basophils (0.0-0.2) 10^3/uL 0.04 ESR (0-30) mm/hr 56 H Sodium (136-145) mmol/L 142 Potassium (3.5-5.1) mmol/L 4.1 Chloride (98-107) mmol/L 102 Carbon Dioxide (21.0-32.0) mmol/L 31.8 Anion Gap (3-11) mmol/L 8.2 BUN (7-18) mg/dL 24 H Creatinine (0.55-1.02) mg/dL 0.9 Est GFR (CKD-EPI 2020) (mL/min/1.73m2) 75.50 Glucose (74-106) mg/dL 109 H Calcium (8.5-10.1) mg/dL 9.1 Total Bilirubin (0.2-1.0) mg/dL 0.4 AST (15-37) U/L 13 L ALT (14-59) U/L 30 Alkaline Phosphatase (46-116) U/L 86 C-Reactive Protein (0.0-0.3) mg/dL 0.85 H Total Protein (6.4-8.2) g/dL 8.3 H Albumin (3.4-5.0) g/dL 4.1 Sign Out No HPI General Mode of arrival: ambulatory. Date/Time Provider Initiated Documentation: 01/03/22 10:36. Limitations to Documentation: no limitations. Information obtained by: patient. HPI Narrative: This is a 56-year-old female who reports past medical history of hypertension, hyperlipidemia, presenting to the ER today for evaluation of left forehead headache, dull, ache, which has been intermittent for the past month, now states left-sided head sharp pains and whole face paresthesias intermittent for the past 5 days. She has taken [id number] Tylenol and Excedrin Migraine with some relief. She states occasionally she has a little bit of pain behind her left ear into her neck. She denies history of migraines. She reports occasionally difficulty concentrating. Denies recent illness, trauma, visual changes, posterior neck pain, chest pain, shortness of breath, radiation of discomfort into her back, down her arms or legs, extremity weakness, numbness, paresthesias. She denies abdominal pain, nausea, vomiting, change in bowel or bladder function. Patient states that she contacted her PCP today who is located in [place], recommended coming to the ER for evaluation of potential CVA and if unremarkable will happily follow-up in their clinic for further evaluation. Patient reports that she does get stressed and this is typically carried in a bandlike fashion over her head. In August they decreased her citalopram by half because they thought it was potentially causing increased symptoms of restless leg syndrome. She reports no change of medication since August. Related Data Home Medications Medication Instructions Recorded Confirmed cyclobenzaprine 10 mg tablet 10 mg PO TID PRN Muscle Spasm #15 03/21/17 01/03/22 tabs simvastatin 40 mg tablet 40 mg PO DAILY 03/21/17 01/03/22 ascorbic acid (vitamin C) 500 mg 500 mg PO DAILY 02/20/21 01/03/22 tablet (Vitamin C) ferrous sulfate 325 mg (65 mg 325 mg PO DAILY 02/20/21 01/03/22 iron) tablet (iron) metoclopramide HCl 10 mg tablet 10 mg PO Q6H PRN #7 tabs 02/20/21 01/03/22 (Reglan) omega-3 fatty acids 1,000 mg PO DAILY 02/20/21 01/03/22 nitroglycerin 0.4 mg sublingual 0.4 mg sublingual Q5 MIN PRN X3 05/12/21 01/03/22 tablet PRN #30 tabs citalopram 20 mg tablet 20 mg PO DAILY 01/03/22 01/03/22 losartan 100 1 tab PO DAILY 01/03/22 01/03/22 mg-hydrochlorothiazide 12.5 mg tablet prednisone 20 mg tablet 60 mg PO DAILY 7 days #21 tabs 01/03/22 Previous Rx's Medication Instructions Recorded cyclobenzaprine 10 mg tablet 10 mg PO TID PRN Muscle Spasm #15 03/21/17 tabs metoclopramide HCl 10 mg tablet 10 mg PO Q6H PRN #7 tabs 02/20/21 (Reglan) nitroglycerin 0.4 mg sublingual 0.4 mg sublingual Q5 MIN PRN X3 05/12/21 tablet PRN #30 tabs prednisone 20 mg tablet 60 mg PO DAILY 7 days #21 tabs 01/03/22 Allergies Allergy/AdvReac Type Severity Reaction Status Date / Time hydrocodone [From Vicodin] Allergy Intermediate Itching Unverified 01/03/22 10:43 General Stated Complaint: Headache THEE: 3 Review of Systems Constitutional Constitutional: Denies fever(s), Reports headache(s) and Denies weakness Eyes Eyes: Denies change in vision ENT Ears, Nose, Mouth, and Throat: Reports headache(s) and Reports neck pain Cardiovascular Cardiovascular: Denies chest pain and Denies dyspnea Respiratory Respiratory: Denies dyspnea Gastrointestinal Gastrointestinal: Denies abdominal pain, Denies nausea and Denies vomiting Musculoskeletal Musculoskeletal: Denies back pain, Reports neck pain, Denies numbness and Reports tingling Integumentary/Breasts Skin/Breast: Denies rash Neurologic Neurologic: Reports headache(s), Denies numbness, Reports tingling and Denies weakness Hematologic/Lymphatic Hematologic/Lymphatic: Denies easy bleeding and Denies easy bruising PFSH All Active Problems (Updated 01/03/22 @ 13:06 by GARETT Escobedo) Cephalgia (Acute) Pain of left heel (Acute) Bone spur of left ankle (Acute) Tear of peroneal tendon of right foot (Acute) Bone spur of right ankle (Acute) Pain of right heel (Acute) Right Achilles tendinitis (Acute) Medical History Chest pain HTN (hypertension) Hyperlipemia Surgical History History of appendectomy History of hysterectomy Hx of cholecystectomy Social History Smoking/Tobacco Use Status: Never Smoking risk assessment performed?: Yes Alcohol Intake: current Alcohol Intake frequency: holidays/special occasions only Drug use: Never Substance use type: does not use Current gender identity: female Do you feel safe at home: Yes Do you feel safe in your relationship?: Yes Exam Const General: cooperative, healthy appearing, comfortable and no acute distress Orientation: alert, awake and oriented x3 HENMT Head: normal to inspection, normocephalic, atraumatic and temporal artery tenderness left parietal and left temporal Ears: external ears normal, TM's normal bilaterally and EAC's normal General nose exam: external nose normal Face and sinus: normal facial exam Mouth: oral mucosae normal and moist mucous membranes Teeth and gingiva: dentition normal Throat: posterior oropharynx normal Eyes General: appearance normal, both eyes and all related structures Alignment and Position: alignment normal Periorbital: periorbital findings normal Eyelids: eyelids normal Conjunctivae: conjunctivae normal Sclera: sclerae normal Cornea: corneas normal Pupils: PERRL EOM: EOM intact bilaterally Direct ophthalmoscopy: normal light reflex Neck Neck: normal visual inspection, full ROM, no meningeal signs, trachea midline, supple and nontender Resp Effort & Inspection: normal respiratory effort and able to speak in complete sentences Auscultation: clear to auscultation bilaterally Cardio Rate: regular rate Rhythm: regular rhythm Skin General skin exam: no rashes or lesions noted Neuro General: patient alert, patient awake, patient oriented x3, moves all extremities and no focal motor deficits Cranial Nerves: CN's II-XI intact bilaterally Cognition: normal cognition Speech: speech normal Gait: normal gait Motor: muscle tone normal throughout, strength 5/5 throughout, no pronator drift, no movement abnormalities noted and no fasciculations Sensory Exam: no sensory deficits noted Coordination: [id number] test normal, Romberg test normal, Does not sway with eyes open and rapid alternating movement UE normal Extrem General: normal to inspection, full ROM and capillary refill normal Psych Appearance: grossly normal Mental Status: mental status grossly normal Course Vital Signs Vital signs: Vital Signs Temperature 36.5 C 01/03/22 10:39 Pulse 79 01/03/22 10:39 Respiratory Rate 18 01/03/22 10:39 Blood Pressure 143/91 H 01/03/22 10:39 Pulse Oximetry 97 01/03/22 10:39 Temperature 36.5 C 01/03/22 10:39 Temperature Source Oral 01/03/22 10:39 Pulse 79 01/03/22 10:39 Respiratory Rate 18 01/03/22 10:39 Respiratory Effort Non-Labored 01/03/22 10:42 Blood Pressure 143/91 H 01/03/22 10:39 Blood Pressure Position Sitting 01/03/22 10:39 Pulse Oximetry 97 01/03/22 10:39 Pain Level 7 01/03/22 10:39
[2022-01-03 11:22] LABS: ESR 56 mm/hr (0-30)
[2022-01-03 11:23] LABS: Abs Immature Grans 0.03 10^3/uL (0.0-0.06); Absolute Basophil Count 0.04 10^3/uL (0.0-0.2); Absolute Eosinophil Count 0.26 10^3/uL (0.0-0.7); Absolute Lymphocyte Count 1.13 10^3/uL (1.2-3.4); Absolute Monocyte Count 0.48 10^3/uL (0.1-0.8); Absolute Neutrophil Count 3.39 10^3/uL (1.2-6.7); Basophils % 0.8; Eosinophils % 4.9; HCT 44.6 % (36.0-46.0); HGB 14.4 g/dL (11.2-15.7); Immature Grans % 0.6; Lymphocytes % 21.2; MCH 29.7 pg (27.0-33.0); MCHC 32.3 % (32.0-36.0); MCV 92 fL (80-95); MPV 9.6 fL (8.0-11.0); Neutrophils % 63.5; Platelet Count 315 10^3/uL (130-400); RBC 4.85 10^6/uL (3.93-5.22); RDW 12.8 % (11.7-14.6); RDW-SD 43.3 fL; WBC 5.33 10^3/uL (4.4-10.8)
--- NOTE | 2022-01-03 11:30 | DI.CT_ITS ---
Exam(s) CT BRAIN NECK CTA EXAM: CT BRAIN NECK CTA CLINICAL HISTORY: Headache, paresthesias. TECHNIQUE: Imaging Protocol: Axial CT angiography was performed with multi-slice acquisition and mu lti-planar and 3D reconstructions. CONTRAST MATERIAL: Intravenous: Omnipaque 350 Contrast volume:structured data in ml COMPARISON: CT CT CHEST PE CTA from 05/11/2021 FINDINGS: CT Head W/O and W contrast: Ventricles and Extra axial spaces: Normal in size and morphology for the patient's age. Hemorrhage: None. Cerebral parenchyma: Normal. Midline shift: None. Brainstem/Cerebellum: Normal. Calvarium: Hyperostosis frontalis interna. Visualized Paranasal sinuses/Mastoids: Clear. Soft Tissues: Unremarkable. Enhancement: Normal. CTA Brain W: Internal Carotid Arteries: Petrous: Normal. Cavernous: Normal. Cerebral: Normal. Middle Cerebral Arteries: Right: No aneurysm, occlusion or significant stenosis. Left: No aneurysm, occlusion or significant stenosis. Anterior Cerebral Arteries: Right: No aneurysm, occlusion or significant stenosis. Left: No aneurysm, occlusion or significant stenosis. Posterior cerebral Arteries: Right: No aneurysm, occlusion or significant stenosis. Left: No aneurysm, occlusion or significant stenosis. Vertebral Arteries: Right: No aneurysm, occlusion or significant stenosis. Left: No aneurysm, occlusion or significant stenosis. Basilar Artery: No aneurysm, occlusion or significant stenosis. CTA Neck W: Common Carotid: Right: Minimal plaque at bulb. No aneurysm, occlusion or significant stenosis. Left: Minimal plaque at bulb. No aneurysm, occlusion or significant stenosis. External Carotid: Right: No aneurysm, occlusion or significant stenosis. Left: No aneurysm, occlusion or significant stenosis. Internal Carotid: Right: Tortuous. No aneurysm, occlusion or significant stenosis. Left: Tortuous. No aneurysm, occlusion or significant stenosis. Vertebral Artery: Right: No aneurysm, occlusion or significant stenosis. Left: No aneurysm, occlusion or significant stenosis. Lung Apices: Normal. Bones: Degenerative changes in the cervical spine. Soft Tissues: Normal. IMPRESSION: 1. Normal CTA examination of the [place]. 2. Unremarkable CT Head. 3. Minimal plaque at the common carotid bulbs. Tortuous bilateral internal carotid arteries without evidence of stenosis. Findings were called to the emergency department provider. RADIATION DOSE DELIVERED: 2,164.43mGy.cm Total DLP DATA REPOSITORY: All CT scans at this facility are submitted to the National Radiology Data Registry (NRDR) Dose Index Registry (DIR) with the [employer] ([employer]). RADIATION OPTIMIZATION: All CT scans at this facility use at least one of these dose optimization te chniques: automated exposure control; mA and/or kV adjustment per patient size (includes targeted exa ms where dose is matched to clinical indication); or iterative reconstruction.
[2022-01-03 11:38] LABS: ALT 30 U/L (14-59); AST 13 U/L (15-37); Albumin 4.1 g/dL (3.4-5.0); Alkaline Phosphatase 86 U/L (46-116); Anion Gap 8.2 mmol/L (3-11); BUN 24 mg/dL (7-18); Bilirubin, Total 0.4 mg/dL (0.2-1.0); C-Reactive Protein 0.85 mg/dL (0.0-0.3); CO2 31.8 mmol/L (21.0-32.0); CREATININE 0.9 mg/dL (0.55-1.02); Calcium 9.1 mg/dL (8.5-10.1); Chloride 102 mmol/L (98-107); Glucose 109 mg/dL (74-106); Potassium 4.1 mmol/L (3.5-5.1); Sodium 142 mmol/L (136-145); Total Protein 8.3 g/dL (6.4-8.2)
[2022-01-03] MEDS: Omnipaque 350 MG/ML 100 ML BTL IJ (12:56)
[2022-01-03 13:20] VITALS: BP 139/87; PULSE 67; RESP 18; TEMP 36.5; O2SAT 96
== END 2022-01-03 13:21 | disposition home or self-care (01) ==
PROVIDERS: Emergency Provider Physician Assistant; PCP Internal Medicine
DX: R51.9 Headache, unspecified (principal); R20.2 Paresthesia of skin
CPT/HCPCS: 36415; 70496; 70498; 80053; 85652; 99285; 85025; 86140; 99284; J3490

== ENCOUNTER 2022-08-14 17:27 | Emergency (ER) | payer BC, SELFPAY ==
[2022-08-14 17:29] VITALS: BP 168/89; PULSE 71; RESP 18; TEMP 36; O2SAT 99
--- NOTE | 2022-08-14 17:45 | DI.CT_ITS ---
Exam(s) CT CHEST WO EXAM: CT CHEST WO CLINICAL HISTORY: trauma to right chest wall. TECHNIQUE: Imaging protocol: Axial computed tomography images were obtained and coronal and sagittal reformatted images were created and reviewed. COMPARISON: CT CT CHEST PE CTA from 05/11/2021 FINDINGS: Tracheobronchial tree: Patent where visualized. Pulmonary parenchyma: There is a stable 1.5 x 1.5 cm nodule in the right lower lobe. The nodule show s internal calcification. There is no focal consolidation. Areas of atelectasis or scarring are sca ttered in the lungs. Mediastinum and Saige: Calcified lymph nodes are again seen in the right hilum. No significant mediast inal adenopathy is present. The esophagus is unremarkable. Thyroid gland: Unremarkable. Pleura: No effusion or pneumothorax. Heart: Mild coronary artery calcification is seen at the LAD. No cardiomegaly. No pericardial effusio n. Aorta: Thoracic aorta non-dilated. Atherosclerosis is present. Upper abdomen: Unremarkable. 1-2 mm nonobstructing right renal stone. There is a duodenal diverticul um. Status post cholecystectomy. Lymph nodes: Within normal limits. Soft tissues: Unremarkable. Bones:Within normal limits for the patient's age. IMPRESSION: 1. No acute pulmonary process. 2. Stable partially calcified 1.5 cm right lower lobe pulmonary nodule. Stable calcified right hilar lymph node. This likely reflects a hamartoma. RADIATION DOSE DELIVERED: 999.57mGy.cm Total DLP 999.57mGy.cm Total DLP DATA REPOSITORY: All CT scans at this facility are submitted to the National Radiology Data Registry (NRDR) Dose Index Registry (DIR) with the [employer] ([employer]). RADIATION OPTIMIZATION: All CT scans at this facility use at least one of these dose optimization te chniques: automated exposure control; mA and/or kV adjustment per patient size (includes targeted exa ms where dose is matched to clinical indication); or iterative reconstruction.
--- NOTE | 2022-08-14 17:46 | W.ED.GENAD ---
Discharge Plan Disposition Patient Disposition: Home Discharge Details Clinical Impression: Chest wall contusion Primary Care Provider: Alecia Godfrey ED Provider: Bishop Lipscomb Home Meds and New Rx's Prescriptions: New naproxen 375 mg tablet,delayed release (DR/EC) 375 mg PO BID Qty: 30 0RF cyclobenzaprine 5 mg tablet 5 mg PO TID PRN (Reason: muscle spasm) Qty: 20 0RF Continued simvastatin 40 MG tablet 40 mg PO DAILY cyclobenzaprine 10 MG tablet 10 mg PO TID PRN (Reason: Muscle Spasm) Qty: 15 0RF ascorbic acid (vitamin C) [Vitamin C] 500 mg Tablet 500 mg PO DAILY ferrous sulfate [iron] 325 mg (65 mg iron) Tablet 325 mg PO DAILY omega-3 fatty acids Capsule 1,000 mg PO DAILY metoclopramide HCl [Reglan] 10 mg tablet 10 mg PO Q6H PRNQty: 7 0RF nitroglycerin 0.4 mg Tablet, Sublingual 0.4 mg sublingual Q5 MIN PRN X3 PRNQty: 30 0RF gabapentin 100 mg Tablet 200 mg PO TID PRN (Reason: nerve pain ) citalopram 20 mg Tablet 40 mg PO DAILY losartan-hydrochlorothiazide 100-12.5 mg Tablet 1 tab PO DAILY Discharge Instructions Instructions: Contusion in Adults (ED) Discharge Data Discharge Physician: Bishop Lipscomb HPI General Date/Time Provider Initiated Documentation: 08/14/22 17:40. HPI Narrative: Patient presents emergency department after she sustained trauma to the back of her chest 3 days ago while she was tubing in [place]. States that she was at about and was tubing and fell off the tube at 27 miles an hour hurting the right side of the upper back. Reports now worsening pain especially on breathing and moving and states she has a lot of spasm in the right posterior chest. Denies any shortness of breath denies any cough. Reports the pain is about a 6/10 pain Related Data Home Medications Medication Instructions Recorded Confirmed cyclobenzaprine 10 mg tablet 10 mg PO TID PRN Muscle Spasm #15 03/21/17 01/03/22 tabs simvastatin 40 mg tablet 40 mg PO DAILY 03/21/17 08/14/22 ascorbic acid (vitamin C) 500 mg 500 mg PO DAILY 02/20/21 08/14/22 tablet (Vitamin C) ferrous sulfate 325 mg (65 mg 325 mg PO DAILY 02/20/21 08/14/22 iron) tablet (iron) metoclopramide HCl 10 mg tablet 10 mg PO Q6H PRN #7 tabs 02/20/21 01/03/22 (Reglan) omega-3 fatty acids 1,000 mg PO DAILY 02/20/21 08/14/22 nitroglycerin 0.4 mg sublingual 0.4 mg sublingual Q5 MIN PRN X3 05/12/21 01/03/22 tablet PRN #30 tabs citalopram 20 mg tablet 40 mg PO DAILY 01/03/22 08/14/22 losartan 100 1 tab PO DAILY 01/03/22 08/14/22 mg-hydrochlorothiazide 12.5 mg tablet cyclobenzaprine 5 mg tablet 5 mg PO TID PRN muscle spasm #20 08/14/22 tabs gabapentin 100 mg tablet 200 mg PO TID PRN nerve pain 08/14/22 08/14/22 naproxen 375 mg tablet,delayed 375 mg PO BID #30 tabs 08/14/22 release Previous Rx's Medication Instructions Recorded cyclobenzaprine 10 mg tablet 10 mg PO TID PRN Muscle Spasm #15 03/21/17 tabs metoclopramide HCl 10 mg tablet 10 mg PO Q6H PRN #7 tabs 02/20/21 (Reglan) nitroglycerin 0.4 mg sublingual 0.4 mg sublingual Q5 MIN PRN X3 05/12/21 tablet PRN #30 tabs cyclobenzaprine 5 mg tablet 5 mg PO TID PRN muscle spasm #20 08/14/22 tabs naproxen 375 mg tablet,delayed 375 mg PO BID #30 tabs 08/14/22 release Allergies Allergy/AdvReac Type Severity Reaction Status Date / Time hydrocodone [From Vicodin] Allergy Intermediate Itching Unverified 08/14/22 17:36 General Stated Complaint: Trauma THEE: 3 Review of Systems All systems reviewed & are unremarkable except as noted in HPI and below Constitutional Constitutional: Reports as per HPI and Reports system reviewed and no additional complaints, except as documented Eyes Eyes: Reports as per HPI ENT Ears, Nose, Mouth, and Throat: Reports system reviewed and no additional complaints, except as documented and Reports as per HPI Cardiovascular Cardiovascular: Reports as per HPI and Reports system reviewed and no additional complaints, except as documented Respiratory Respiratory: Reports as per HPI and Reports system reviewed and no additional complaints, except as documented Gastrointestinal Gastrointestinal: Reports as per HPI and Reports system reviewed and no additional complaints, except as documented Genitourinary Genitourinary: Reports system reviewed and no additional complaints, except as documented Musculoskeletal Musculoskeletal: Reports system reviewed and no additional complaints, except as documented Integumentary/Breasts Skin/Breast: Reports system reviewed and no additional complaints, except as documented Neurologic Neurologic: Reports system reviewed and no additional complaints, except as documented Psychiatric Psychiatric: Reports system reviewed and no additional complaints, except as documented Endocrine Endocrine: Reports system reviewed and no additional complaints, except as documented PFSH All Active Problems (Updated 08/14/22 @ 19:34 by Bishop Lipscomb MD) Chest wall contusion (Acute) Pain of left heel (Acute) Bone spur of left ankle (Acute) Tear of peroneal tendon of right foot (Acute) Bone spur of right ankle (Acute) Pain of right heel (Acute) Right Achilles tendinitis (Acute) Medical History Chest pain HTN (hypertension) Hyperlipemia Surgical History History of appendectomy History of hysterectomy Hx of cholecystectomy Social History Smoking/Tobacco Use Status: Never Smoking risk assessment performed?: Yes Alcohol Intake: current Alcohol Intake frequency: holidays/special occasions only Drug use: Never Substance use type: does not use Current gender identity: female Do you feel safe at home: Yes Do you feel safe in your relationship?: Yes Exam Narrative Exam Narrative: Exam; vitals signs as reported above Constitutional; In no acute distress, afebrile General: cooperative, healthy appearing, comfortable and no acute distress HENMT: Head: normal to inspection, no palpable skull fracture and normocephalic Eyes: l: appearance normal, both eyes and all related structures ]Pupils: PERRL EOM: EOM intact bilaterally Direct ophthalmoscopy: normal light reflex, normal conjunctiva, normal visual acuity Neck no JVD, supple Neck: normal visual inspection, full ROM and no lymphadenopathy Chest Chest: normal inspection of the chest tenderness tenderness to palpation in the right thoracic paraspinal muscles of the back Respiratory : normal respiratory effort and able to speak in complete sentences Cardio Rate: regular rate Rhythm: regular rhythm normal heart sounds S1 and S2 no murmurs, gallops, or rubs GI Inspection: normal to inspection, normal bowel sounds, soft, non tender, non distended, no organomegally Back/Spine/ no CVA tenderness Thoracic/Lumbar Spine: no tenderness or deformities Skin no rashes or lesions Neuro: patient alert and no meningeal signs, Cranial Nerves: CN's II-XI intact bilaterally, Cognition: normal cognition, Speech: speech normal, Gait: normal gait, Depp tendon reflexes normal 2+ Extremities, no edema, full range of motion, normal strength : nomal Course Vital Signs Vital signs: Vital Signs Temperature 36.0 C L 08/14/22 17:29 Pulse 71 08/14/22 17:29 Respiratory Rate 18 08/14/22 17:29 Blood Pressure 168/89 H 08/14/22 17:29 Pulse Oximetry 99 08/14/22 17:29 Temperature 36.0 C L 08/14/22 17:29 Pulse 71 08/14/22 17:29 Respiratory Rate 18 08/14/22 17:29 Respiratory Effort Normal 08/14/22 17:34 Blood Pressure 168/89 H 08/14/22 17:29 Pulse Oximetry 99 08/14/22 17:29 Oxygen Delivery Method Room Air 08/14/22 17:29 Oxygen Flow Rate 0 08/14/22 17:29 Pain Level 9 08/14/22 17:29
[2022-08-14] MEDS: diazePAM 5 MG TAB PO (18:00)
[2022-08-14] MEDS: Ketorolac 15 MG/ML VIAL IM (18:00)
--- NOTE | 2022-08-14 18:53 | DI.VRAD_ITS ---
PROCEDURE INFORMATION: Exam: CT Chest Without Contrast; Diagnostic Exam date and time: 08/14/2022 6:31 PM Age: 57 years old Clinical indication: Other: Trauma to right chest wall TECHNIQUE: Imaging protocol: Diagnostic computed tomography of the chest without contrast. 3D rendering (Not supervised by radiologist): MIP and/or 3D reconstructed images were created by the technologist. Total images: 2047 Radiation optimization: All CT scans at this facility use at least one of these dose optimization techniques: automated exposure control; mA and/or kV adjustment per patient size (includes targeted exams where dose is matched to clinical indication); or iterative reconstruction. COMPARISON: 1. CT CHEST PE CTA 05/11/2021 7:[address] May 11, 2019. FINDINGS: Lungs: No lung parenchymal contusion or laceration. Lung nodules: Stable 1 cm nodule superior segment right lower lobe with punctate central calcification, unchanged from prior studies. Pleural spaces: No pneumothorax. No pleural effusion. Heart: Minimal pericardial thickening/fluid without change. Mediastinal space: No pneumomediastinum. No hemomediastinum. Lymph nodes: Small partially calcified right hilar node. Vasculature: Unremarkable. No aortic aneurysm. Liver: Mild hepatic steatosis. Gallbladder and bile ducts: Cholecystectomy. Intraperitoneal space: No free air in the visualized upper abdomen. Bones/joints: Thoracic dextroscoliosis. Thoracic spondylosis. No definite acute rib fracture. No compression fracture. Soft tissues: No soft tissue gas. No chest wall bruising. IMPRESSION: 1. No acute intrathoracic findings. 2. Stable right lung nodule which may represent a hamartoma. Dictated and Authenticated by: Jermaine Benedict MD. Ordering:YARITZA Alas MD
--- NOTE | 2022-08-14 19:38 | ED.GENADUL_ITS ---
Discharge Plan Disposition Patient Disposition: Home Discharge Details Clinical Impression: Chest wall contusion Primary Care Provider: Alecia Godfrey ED Provider: Bishop Lipscomb Meds and New Rx's Prescriptions: New naproxen 375 mg tablet,delayed release (DR/EC) 375 mg PO BID Qty: 30 0RF cyclobenzaprine 5 mg tablet 5 mg PO TID PRN (Reason: muscle spasm) Qty: 20 0RF Continued simvastatin 40 MG tablet 40 mg PO DAILY cyclobenzaprine 10 MG tablet 10 mg PO TID PRN (Reason: Muscle Spasm) Qty: 15 0RF ascorbic acid (vitamin C) [Vitamin C] 500 mg Tablet 500 mg PO DAILY ferrous sulfate [iron] 325 mg (65 mg iron) Tablet 325 mg PO DAILY omega-3 fatty acids Capsule 1,000 mg PO DAILY metoclopramide HCl [Reglan] 10 mg tablet 10 mg PO Q6H PRNQty: 7 0RF nitroglycerin 0.4 mg Tablet, Sublingual 0.4 mg sublingual Q5 MIN PRN X3 PRNQty: 30 0RF gabapentin 100 mg Tablet 200 mg PO TID PRN (Reason: nerve pain ) citalopram 20 mg Tablet 40 mg PO DAILY losartan-hydrochlorothiazide 100-12.5 mg Tablet 1 tab PO DAILY Discharge Instructions Instructions: Contusion in Adults (ED) Discharge Data Discharge Date/Time-TO BE ENTERED AT DEPARTURE: 08/14/22 19:46 Discharge Physician: Bishop Lipscomb [facility] General Date/Time Provider Initiated Documentation: 08/14/22 17:40 . Related Data Home Medications Medication Instructions Recorded Confirmed cyclobenzaprine 10 mg tablet 10 mg PO TID PRN Muscle Spasm #15 03/21/17 01/03/22 tabs simvastatin 40 mg tablet 40 mg PO DAILY 03/21/17 08/14/22 ascorbic acid (vitamin C) 500 mg 500 mg PO DAILY 02/20/21 08/14/22 tablet (Vitamin C) ferrous sulfate 325 mg (65 mg 325 mg PO DAILY 02/20/21 08/14/22 iron) tablet (iron) metoclopramide HCl 10 mg tablet 10 mg PO Q6H PRN #7 tabs 02/20/21 01/03/22 (Reglan) omega-3 fatty acids 1,000 mg PO DAILY 02/20/21 08/14/22 nitroglycerin 0.4 mg sublingual 0.4 mg sublingual Q5 MIN PRN X3 05/12/21 01/03/22 tablet PRN #30 tabs citalopram 20 mg tablet 40 mg PO DAILY 01/03/22 08/14/22 losartan 100 1 tab PO DAILY 01/03/22 08/14/22 mg-hydrochlorothiazide 12.5 mg tablet cyclobenzaprine 5 mg tablet 5 mg PO TID PRN muscle spasm #20 08/14/22 tabs gabapentin 100 mg tablet 200 mg PO TID PRN nerve pain 08/14/22 08/14/22 naproxen 375 mg tablet,delayed 375 mg PO BID #30 tabs 08/14/22 release Previous Rx's Medication Instructions Recorded cyclobenzaprine 10 mg tablet 10 mg PO TID PRN Muscle Spasm #15 03/21/17 tabs metoclopramide HCl 10 mg tablet 10 mg PO Q6H PRN #7 tabs 02/20/21 (Reglan) nitroglycerin 0.4 mg sublingual 0.4 mg sublingual Q5 MIN PRN X3 05/12/21 tablet PRN #30 tabs cyclobenzaprine 5 mg tablet 5 mg PO TID PRN muscle spasm #20 08/14/22 tabs naproxen 375 mg tablet,delayed 375 mg PO BID #30 tabs 08/14/22 release Allergies Allergy/AdvReac Type Severity Reaction Status Date / Time hydrocodone [From Vicodin] Allergy Intermediate Itching Unverified 08/14/22 17:36 General Stated Complaint: Trauma THEE: 3 Review of Systems All systems reviewed & are unremarkable except as noted in HPI and below Constitutional Constitutional: Reports as per HPI and Reports system reviewed and no additional complaints, except as documented Eyes Eyes: Reports as per HPI ENT Ears, Nose, Mouth, and Throat: Reports system reviewed and no additional complaints, except as documented and Reports as per HPI Cardiovascular Cardiovascular: Reports as per HPI and Reports system reviewed and no additional complaints, except as documented Respiratory Respiratory: Reports as per HPI and Reports system reviewed and no additional complaints, except as documented Gastrointestinal Gastrointestinal: Reports as per HPI and Reports system reviewed and no additional complaints, except as documented Genitourinary Genitourinary: Reports system reviewed and no additional complaints, except as documented Musculoskeletal Musculoskeletal: Reports system reviewed and no additional complaints, except as documented Integumentary/Breasts Skin/Breast: Reports system reviewed and no additional complaints, except as documented Neurologic Neurologic: Reports system reviewed and no additional complaints, except as documented Psychiatric Psychiatric: Reports system reviewed and no additional complaints, except as documented Endocrine Endocrine: Reports system reviewed and no additional complaints, except as documented PFSH All Active Problems (Updated 08/14/22 @ 19:34 by Bishop Lipscomb MD) Chest wall contusion (Acute) Pain of left heel (Acute) Bone spur of left ankle (Acute) Tear of peroneal tendon of right foot (Acute) Bone spur of right ankle (Acute) Pain of right heel (Acute) Right Achilles tendinitis (Acute) Medical History Chest pain HTN (hypertension) Hyperlipemia Surgical History History of appendectomy History of hysterectomy Hx of cholecystectomy Social History Smoking/Tobacco Use Status: Never Smoking risk assessment performed?: Yes Alcohol Intake: current Alcohol Intake frequency: holidays/special occasions only Drug use: Never Substance use type: does not use Current gender identity: female Do you feel safe at home: Yes Do you feel safe in your relationship?: Yes Exam Narrative Exam Narrative: Exam; vitals signs as reported above Constitutional; In no acute distress, afebrile General: cooperative, healthy appearing, comfortable and no acute distress HENMT: Head: normal to inspection, no palpable skull fracture and normocephalic Eyes: l: appearance normal, both eyes and all related structures ]Pupils: PERRL EOM: EOM intact bilaterally Direct ophthalmoscopy: normal light reflex, normal conjunctiva, normal visual acuity Neck no JVD, supple Neck: normal visual inspection, full ROM and no lymphadenopathy Chest Chest: normal inspection of the chest tenderness tenderness to palpation in the right thoracic paraspinal muscles of the back Respiratory : normal respiratory effort and able to speak in complete sentences Cardio Rate: regular rate Rhythm: regular rhythm normal heart sounds S1 and S2 no murmurs, gallops, or rubs GI Inspection: normal to inspection, normal bowel sounds, soft, non tender, non distended, no organomegally Back/Spine/ no CVA tenderness Thoracic/Lumbar Spine: no tenderness or deformities Skin no rashes or lesions Neuro: patient alert and no meningeal signs, Cranial Nerves: CN's II-XI intact bilaterally, Cognition: normal cognition, Speech: speech normal, Gait: normal gait, Depp tendon reflexes normal 2+ Extremities, no edema, full range of motion, normal strength : nomal Course Vital Signs Vital signs: Vital Signs Temperature 36.0 C L 08/14/22 17:29 Pulse 71 08/14/22 17:29 Respiratory Rate 18 08/14/22 17:29 Blood Pressure 168/89 H 08/14/22 17:29 Pulse Oximetry 99 08/14/22 17:29 Temperature 36.0 C L 08/14/22 17:29 Pulse 71 08/14/22 17:29 Respiratory Rate 18 08/14/22 17:29 Respiratory Effort Normal 08/14/22 17:34 Blood Pressure 168/89 H 08/14/22 17:29 Pulse Oximetry 99 08/14/22 17:29 Oxygen Delivery Method Room Air 08/14/22 17:29 Oxygen Flow Rate 0 08/14/22 17:29 Pain Level 9 08/14/22 17:29
== END 2022-08-14 19:46 | disposition home or self-care (01) ==
PROVIDERS: Emergency Provider Emergency Medicine Emergency Medical Services; PCP Internal Medicine
DX: R07.9 Chest pain, unspecified (principal)
CPT/HCPCS: 71250; 96372; 99284; J1885

== ENCOUNTER 2022-09-21 11:31 | Emergency (ER) | payer BC, SELFPAY ==
[2022-09-21 11:38] VITALS: BP 159/96; PULSE 68; RESP 18; TEMP 36.8; O2SAT 99
--- NOTE | 2022-09-21 11:40 | ED.GENADUL_ITS ---
Discharge Plan Disposition Patient Disposition: Home Discharge Details Clinical Impression: Acute pain of right shoulder Primary Care Provider: Alecia Godfrey ED Provider: Sushant Bhakta Home Meds and New Rx's Prescriptions: Continued simvastatin 40 MG tablet 40 mg PO DAILY cyclobenzaprine 10 MG tablet 10 mg PO TID PRN (Reason: Muscle Spasm) Qty: 15 0RF ascorbic acid (vitamin C) [Vitamin C] 500 mg Tablet 500 mg PO DAILY ferrous sulfate [iron] 325 mg (65 mg iron) Tablet 325 mg PO DAILY omega-3 fatty acids Capsule 1,000 mg PO DAILY metoclopramide HCl [Reglan] 10 mg tablet 10 mg PO Q6H PRNQty: 7 0RF nitroglycerin 0.4 mg Tablet, Sublingual 0.4 mg sublingual Q5 MIN PRN X3 PRNQty: 30 0RF gabapentin 100 mg Tablet 200 mg PO TID PRN (Reason: nerve pain ) naproxen 375 mg tablet,delayed release (DR/EC) 375 mg PO BID Qty: 30 0RF cyclobenzaprine 5 mg tablet 5 mg PO TID PRN (Reason: muscle spasm) Qty: 20 0RF citalopram 20 mg Tablet 40 mg PO DAILY losartan-hydrochlorothiazide 100-12.5 mg Tablet 1 tab PO DAILY Discharge Instructions Instructions: Shoulder Pain (ED) Additional Instructions: Please read all of the information that accompanies these instructions. You were seen in the emergency department for your right shoulder pain. Your x-ray showed no sign of any fractures or dislocation in your shoulder nor in your forearm. Please schedule an appointment with your primary care provider next week. Please return to the emergency department if develop swelling redness fevers or any other concerns. For your pain please take medications as follows: 1. Take acetaminophen (Tylenol), 1,000 mg (two 500 mg tabs) every 6 hours 2. Take ibuprofen (Advil), 400 mg every 6 hours. Medical Decision Making This is an overall very well-appearing normothermic and not tachycardic [id number] 57-year-old female with right shoulder and right forearm pain status post minor trauma concerning for fracture versus dislocation versus ligamentous injury. Patient had no preceding chest pain nor dizziness nor shortness of breath so my suspicion for ACS CVA, and PE is exceedingly low so do not feel patient requires an ECG CAT scan nor a D-dimer. No nausea nor vomiting to suggest benefit from laboratory evaluation as my suspicion for acute electrolyte abnormalities is exceedingly low. No preceding shortness of breath and patient is not pale appearing nor tachycardic so I did not think that the patient required a CBC to assess for acute blood loss anemia. Patient does have rings on her right hand. I asked emergency department nurse Ren to remove her ring using some lubrication as she reports that she was having difficulty removing her ring. Given the duration of time since her injury and her lack of ecchymosis my suspicion for acute fracture is low. If her x-rays are negative well defer CT scan at this point in time given her limited mechanism of injury. No pain or proportion to suggest necrotizing soft tissue infection. No trauma to head no history of head strike so will defer CT head. No neck pain to suggest benefit from CT cervical spine. No fluctuance to suggest abscess. No erythema to suggest cellulitis. It is certainly possible that the patient could have developed adhesive capsulitis as she has had quite limited movement of her arm since her injury. She does have risk factors as she is likely postmenopausal based on her age. She has no significant erythema nor fevers to suggest septic joint. She has no clavicular tenderness to suggest clavicle fracture. No hypoxia no shortness of breath to suggest pneumothorax so I did not obtain a chest x-ray as there was no chest trauma. Will reassess following plain films. Vitals notable for hypertension. Patient does have a history of hypertension. Her elevated blood pressure may be secondary to pain. No recent PICC line to suggest upper extremity DVT. Right hand warm and well-perfused so I am not concerned for any critical limb ischemia so I do not feel that the patient requires a CT angiogram. 1:21 PM No acute osseous abnormalities found on formal radiology interpretation of the patient's right shoulder and forearm plain films. I have asked health community health promoter Dipti to have the patient seen next week by her PCP for reassessment. We will educate patient on pendulum activities to encourage range of motion and prevent complications from immobilization. Will advise acetaminophen and ibuprofen as needed for pain. We will proceed with an empiric trial of expectant outpatient management. 1:30 PM At the time of discharge patient reported that she had pain lower down on her humerus. She reported to the proximal third of her humerus. I reviewed her right shoulder films and there is no acute osseous abnormalities. We will proceed with plan to discharge with empiric trial of expectant outpatient management. HPI General Date/Time Provider Initiated Documentation: 09/21/22 11:40 . HPI Narrative: This is a dojnz-owsw-[id number] 57-year-old female presenting to the emergency department with right shoulder pain. Patient reports that 3 days ago she inadvertently tripped over her trunk at her sister's house. She reportedly caught herself on the casing of a door. She subsequently has had pain in her right shoulder. He also has pain in her proximal right forearm. She did not hit her head nor lose consciousness. She denies any preceding chest pain and dizziness. She took 600 mg of acetaminophen this morning at 8:30 AM. She is not anticoagulated. She denies neck pain. Related Data Home Medications Medication Instructions Recorded Confirmed cyclobenzaprine 10 mg tablet 10 mg PO TID PRN Muscle Spasm #15 03/21/17 09/21/22 tabs simvastatin 40 mg tablet 40 mg PO DAILY 03/21/17 09/21/22 ascorbic acid (vitamin C) 500 mg 500 mg PO DAILY 02/20/21 09/21/22 tablet (Vitamin C) ferrous sulfate 325 mg (65 mg 325 mg PO DAILY 02/20/21 09/21/22 iron) tablet (iron) metoclopramide HCl 10 mg tablet 10 mg PO Q6H PRN #7 tabs 02/20/21 09/21/22 (Reglan) omega-3 fatty acids 1,000 mg PO DAILY 02/20/21 09/21/22 nitroglycerin 0.4 mg sublingual 0.4 mg sublingual Q5 MIN PRN X3 05/12/21 09/21/22 tablet PRN #30 tabs citalopram 20 mg tablet 40 mg PO DAILY 01/03/22 09/21/22 losartan 100 1 tab PO DAILY 01/03/22 09/21/22 mg-hydrochlorothiazide 12.5 mg tablet cyclobenzaprine 5 mg tablet 5 mg PO TID PRN muscle spasm #20 08/14/22 09/21/22 tabs gabapentin 100 mg tablet 200 mg PO TID PRN nerve pain 08/14/22 09/21/22 naproxen 375 mg tablet,delayed 375 mg PO BID #30 tabs 08/14/22 09/21/22 release Previous Rx's Medication Instructions Recorded cyclobenzaprine 10 mg tablet 10 mg PO TID PRN Muscle Spasm #15 03/21/17 tabs metoclopramide HCl 10 mg tablet 10 mg PO Q6H PRN #7 tabs 02/20/21 (Reglan) nitroglycerin 0.4 mg sublingual 0.4 mg sublingual Q5 MIN PRN X3 05/12/21 tablet PRN #30 tabs cyclobenzaprine 5 mg tablet 5 mg PO TID PRN muscle spasm #20 08/14/22 tabs naproxen 375 mg tablet,delayed 375 mg PO BID #30 tabs 08/14/22 release Allergies Allergy/AdvReac Type Severity Reaction Status Date / Time hydrocodone [From Vicodin] Allergy Intermediate Itching Unverified 09/21/22 11:44 General THEE: 3 PFSH All Active Problems (Updated 09/21/22 @ 13:25 by Sushant Bhakta MD) Acute pain of right shoulder (Acute) Pain of left heel (Acute) Bone spur of left ankle (Acute) Tear of peroneal tendon of right foot (Acute) Bone spur of right ankle (Acute) Pain of right heel (Acute) Right Achilles tendinitis (Acute) Medical History Chest pain HTN (hypertension) Hyperlipemia Surgical History History of appendectomy History of hysterectomy Hx of cholecystectomy Social History Smoking/Tobacco Use Status: Never Smoking risk assessment performed?: Yes Alcohol Intake: current Alcohol Intake frequency: holidays/special occasions only Drug use: Never Substance use type: does not use Current gender identity: female Do you feel safe at home: Yes Do you feel safe in your relationship?: Yes Exam Narrative Exam Narrative: General: Well-appearing in no acute distress speaking in complete sentences. Head: Normocephalic, atraumatic. Eye: Extraocular eye movements intact. No conjunctival injection. No scleral icterus. Ear, nose, mouth, throat: Grossly normal inspection. Normal voice, handling secretions normally. Neck: Trachea midline. Cardiovascular: Well-perfused distal extremities. Respiratory: Nonlabored respiration. Gastrointestinal: Nondistended abdomen. Musculoskeletal: Right upper extremity: No obvious signs of trauma to right upper extremity. Patient has her right upper extremity held in full abduction at the shoulder and 90 degrees of flexion at the elbow. Forearm is in a neutral position. There are rings on the patient's right ring finger. Patient is a 2+ right radial pulse. Cap refill less than 2 seconds in the right fingertips. She has intact sensation and motor function across the radial, median, and ulnar nerve distributions of her right hand. Of note she does note slightly decreased sensation throughout her hand. She is able to fully supinate but reports pain in her proximal right forearm. No tenderness in the elbow. No tenderness throughout humerus. Shoulder with no obvious deformities nor signs of dislocation. Patient does have diffuse shoulder tenderness. No clavicular tenderness. No scapular tenderness. Skin: Normal for age and race, grossly normal temperature and turgor. No acute rash. Neurologic: Alert and appropriate, no apparent acute deficits. Psychiatric: Mood and manner are appropriate. Grooming and personal hygiene are appropriate.
--- NOTE | 2022-09-21 11:45 | DI.RAD_ITS ---
Exam(s) XR FOREARM RT EXAM: XR FOREARM RT CLINICAL HISTORY: Pain right forearm. TECHNIQUE: 2D digital imaging was performed. COMPARISON: No exams were available for comparison FINDINGS: 3 views No evidence of fracture. Soft tissue swelling dorsally in the forearm. No osseous findings. No rad iopaque foreign body. IMPRESSION: Dorsal soft tissue swelling. No acute osseous findings. DATA REPOSITORY: RADIATION DOSE DELIVERED:
--- NOTE | 2022-09-21 11:45 | DI.RAD_ITS ---
Exam(s) XR SHOULDER RT COMPLETE 2+V EXAM: XR SHOULDER RT COMPLETE 2+V CLINICAL HISTORY: fall, fx vs dislocation. TECHNIQUE: 2D digital imaging was performed. COMPARISON: No exams were available for comparison FINDINGS: 3 views Five views. No evidence of fracture nor dislocation nor abnormal soft tissue calcifications. Subacr omial space appears unremarkable. No degenerative changes evident in the glenohumeral joint. AC ney nt unremarkable. Bone density normal. No osseous lesions. IMPRESSION: No significant osseous findings. DATA REPOSITORY: RADIATION DOSE DELIVERED:
[2022-09-21] MEDS: Ibuprofen 600 MG TAB PO (12:33)
--- NOTE | 2022-09-21 13:22 | NUR.NOTE ---
Nursing Note: PT needs PCP follow up within the week for right shoulder pain. Dipti, ED
--- NOTE | 2022-09-24 10:29 | CMPROGNOTE_ITS ---
Date of service: 09/24/22 Time of Service: 10:29 Care Management Progress Note Progress Note Text Progress Note Text: CM faxed referral including ED note to Dr. Godfrey at [facility] in [place], [place]. Requested ED follow up appt within one week, PCP to contact pt directly.
== END 2022-09-21 13:33 | disposition home or self-care (01) ==
PROVIDERS: Emergency Provider Emergency Medicine; PCP Internal Medicine
DX: M25.511 Pain in right shoulder (principal); M79.631 Pain in right forearm; W01.0XXA Fall on same level from slipping, tripping and stumbling without subsequent striking against object, initial encounter; Y92.009 Unspecified place in unspecified non-institutional (private) residence as the place of occurrence of the external cause
CPT/HCPCS: 99283; 73030; 73090; 99284

== ENCOUNTER 2023-09-20 21:20 | Outpatient (REF) | payer BC, SELFPAY | END 2023-09-20 21:21 | disposition home or self-care (01) | LOC: LBN 21:20 | PROVIDERS: PCP Internal Medicine; Visit Provider Physician Assistant | DX: N39.0 Urinary tract infection, site not specified (principal) | CPT/HCPCS: 87077; 87086; 87186 ==

== ENCOUNTER 2024-08-12 19:52 | Emergency (ER) | payer BC, SELFPAY ==
[2024-08-12 20:04] VITALS: BP 134/76; PULSE 72; RESP 20; TEMP 36.7; O2SAT 98
--- NOTE | 2024-08-12 20:22 | W.ED.GENAD ---
Discharge Plan Disposition Patient Disposition: Home Discharge Details Clinical Impression: Laceration of leg Primary Care Provider: Alecia Godfrey ED Provider: Cyndee Zhu Home Meds and New Rx's Prescriptions: No Action phenazopyridine [Pyridium] 200 mg tablet 200 mg PO TID PRN (Reason: pain) Qty: 10 0RF simvastatin 40 MG tablet 40 mg PO DAILY cyclobenzaprine 10 MG tablet 10 mg PO TID PRN (Reason: Muscle Spasm) Qty: 15 0RF ascorbic acid (vitamin C) [Vitamin C] 500 mg Tablet 500 mg PO DAILY ferrous sulfate [iron] 325 mg (65 mg iron) Tablet 325 mg PO DAILY omega-3 fatty acids Capsule 1,000 mg PO DAILY nitroglycerin 0.4 mg Tablet, Sublingual 0.4 mg sublingual Q5 MIN PRN X3 PRNQty: 30 0RF gabapentin 100 mg Tablet 200 mg PO DAILY PRN (Reason: nerve pain ) naproxen 375 mg tablet,delayed release (DR/EC) 375 mg PO BID Qty: 30 0RF cyclobenzaprine 5 mg tablet 5 mg PO TID PRN (Reason: muscle spasm) Qty: 20 0RF citalopram 20 mg Tablet 40 mg PO DAILY losartan-hydrochlorothiazide 100-12.5 mg Tablet 1 tab PO DAILY Zepbound 15 mg/0.5 mL pen injector 15 mg subcut QWEEK Discharge Instructions Additional Instructions: Your last tetanus was in 2021. Keep your wound clean and dry. Wash daily antibacterial soap and water. Apply a thin layer bacitracin and triple antibiotic ointment. Cover with a nonstick bandage. You may use Tylenol or ibuprofen as needed for discomfort Could have signs of infection such as redness, swelling, pus drainage, increasing pain. If you notice any of these, please seek care immediately emergency department/primary care/urgent care, as antibiotics may be indicated HPI General Date/Time Provider Initiated Documentation: 08/12/24 20:18. HPI Narrative: Nandini is a 51-year-old woman presents with a right tavera laceration sustained at work around 1630 hours. Bleeding well-controlled. Reports soreness but no distal numbness or tingling. No other injuries reported. No pharmacological intervention. History of hypertension, no diabetes, immunocompromise, cardiac, or pulmonary conditions. Unsure of last tetanus. Related Data Home Medications ?Medication ?Instructions ?Recorded ?Confirmed cyclobenzaprine 10 mg tablet 10 mg PO TID PRN Muscle Spasm #15 03/21/17 08/12/24 tabs simvastatin 40 mg tablet 40 mg PO DAILY 03/21/17 08/12/24 ascorbic acid (vitamin C) 500 mg 500 mg PO DAILY 02/20/21 08/12/24 tablet (Vitamin C) ferrous sulfate 325 mg (65 mg 325 mg PO DAILY 02/20/21 08/12/24 iron) tablet (iron) Held on 08/12/24. Instructions: Changed by Provider omega-3 fatty acids 1,000 mg PO DAILY 02/20/21 08/12/24 nitroglycerin 0.4 mg sublingual 0.4 mg sublingual Q5 MIN PRN X3 05/12/21 08/12/24 tablet PRN #30 tabs citalopram 20 mg tablet 40 mg PO DAILY 01/03/22 08/12/24 losartan 100 1 tab PO DAILY 01/03/22 08/12/24 mg-hydrochlorothiazide 12.5 mg tablet cyclobenzaprine 5 mg tablet 5 mg PO TID PRN muscle spasm #20 08/14/22 08/12/24 tabs gabapentin 100 mg tablet 200 mg PO DAILY PRN nerve pain 08/14/22 08/12/24 naproxen 375 mg tablet,delayed 375 mg PO BID #30 tabs 08/14/22 08/12/24 release phenazopyridine 200 mg tablet 200 mg PO TID PRN pain 6 doses #10 09/20/23 08/12/24 (Pyridium) tabs tirzepatide (weight loss) 15 15 mg subcut QWEEK 08/12/24 08/12/24 mg/0.5 mL subcutaneous pen injector (Zepbound) Previous Rx's ?Medication ?Instructions ?Recorded cyclobenzaprine 10 mg tablet 10 mg PO TID PRN Muscle Spasm #15 03/21/17 tabs nitroglycerin 0.4 mg sublingual 0.4 mg sublingual Q5 MIN PRN X3 05/12/21 tablet PRN #30 tabs cyclobenzaprine 5 mg tablet 5 mg PO TID PRN muscle spasm #20 08/14/22 tabs naproxen 375 mg tablet,delayed 375 mg PO BID #30 tabs 08/14/22 release phenazopyridine 200 mg tablet 200 mg PO TID PRN pain 6 doses #10 09/20/23 (Pyridium) tabs Allergies Allergy/AdvReac Type Severity Reaction Status Date / Time hydrocodone (From Vicodin) Allergy Intermediate Itching Verified 08/12/24 20:08 General Stated Complaint: Laceration THEE: 4 Exam Narrative Exam Narrative: General Appearance: Normal. Patient is alert and oriented, no acute distress. Vital signs: Within normal limits. Skin: 2-inch linear laceration on left tavera, edges well-approximated, no active bleeding. No surrounding erythema. Extremities: No distal numbness/tingling. Psychiatric: Normal. Course Vital Signs Vital signs: Vital Signs Temperature 36.7 C 08/12/24 20:04 Pulse 72 08/12/24 20:04 Respiratory Rate 20 08/12/24 20:04 Blood Pressure 134/76 08/12/24 20:04 Pulse Oximetry 98 08/12/24 20:04 Temperature 36.7 C 08/12/24 20:04 Temperature Source Oral 08/12/24 20:04 Pulse 72 08/12/24 20:04 Respiratory Rate 20 08/12/24 20:04 Blood Pressure 134/76 08/12/24 20:04 Blood Pressure Position Sitting 08/12/24 20:04 Pulse Oximetry 98 08/12/24 20:04 Oxygen Delivery Method Room Air 08/12/24 20:04 Oxygen Flow Rate 0 08/12/24 20:04 Pain Level 1 08/12/24 20:04 Medical Decision Making Initial Assessment: 51-year-old woman with a 2-inch foot laceration, sore but no numbness or tingling concerning for neurovascular compromise, no medications taken. No red flags concerning for foreign body. ED Course: - Wound cleaned by tech, no opening of skin noted. No indication for repair or imaging at this time. Review of records show the patient recently had tetanus vaccine in 2021. No booster indicated at this time. Final Assessment: lower leg laceration, cleaned, tetanus vaccine administered. Clinical Impression: - Laceration, no red flags concerning for infection at this time. Disposition: - Discharge home - Advised to return if signs of infection or increased pain Patient consented to the use of ELAINE PFSH All Active Problems (Updated 08/12/24 @ 20:29 by Cyndee Camarillo Laceration of leg (Acute) Pain of left heel (Acute) Bone spur of left ankle (Acute) Tear of peroneal tendon of right foot (Acute) Bone spur of right ankle (Acute) Pain of right heel (Acute) Right Achilles tendinitis (Acute) Medical History Chest pain HTN (hypertension) Hyperlipemia Surgical History History of appendectomy History of hysterectomy Hx of cholecystectomy Social History Smoking/Tobacco Use Status: Never Smoking risk assessment performed?: Yes Alcohol Intake: current Alcohol Intake frequency: holidays/special occasions only Drug use: Never Substance use type: does not use Current gender identity: female Do you feel safe at home: Yes Do you feel safe in your relationship?: Yes
== END 2024-08-12 20:36 | disposition home or self-care (01) ==
PROVIDERS: Emergency Provider Nurse Practitioner Family; PCP Internal Medicine
DX: S81.812A Laceration without foreign body, left lower leg, initial encounter (principal); W26.8XXA Contact with other sharp object(s), not elsewhere classified, initial encounter; Y99.0 Civilian activity done for income or pay
CPT/HCPCS: 99283; 99282

== ENCOUNTER 2024-08-18 10:33 | Outpatient (CLI) | payer BC, SELFPAY ==
--- NOTE | 2024-08-18 10:15 | DI.RAD_ITS ---
Exam(s) XR HAND LT COMPLETE EXAM: XR HAND LT COMPLETE CLINICAL HISTORY: LEFT THUMB INJURY. TECHNIQUE: 2D digital imaging was performed. Three views. COMPARISON: No exams were available for comparison FINDINGS: BONES: No acute fracture is present. No bony destructive lesion is seen. JOINTS: No dislocation present. SOFT TISSUE: Normal. IMPRESSION: Unremarkable radiographs of the left hand. DATA REPOSITORY: RADIATION DOSE DELIVERED:
== END 2024-08-18 10:34 | disposition home or self-care (01) ==
LOC: DIORS 10:33
PROVIDERS: PCP Internal Medicine; Visit Provider Student in an Organized Health Care Education/Training Program
DX: M79.645 Pain in left finger(s) (principal)
CPT/HCPCS: 73130

== ENCOUNTER 2024-11-19 04:31 | Outpatient (CLI) | payer BC, SELFPAY ==
--- NOTE | 2024-11-19 | DI.MAMMO_ITS ---
Exam(s) MAMMO SCREENING EXAM: MAMMO SCREENING CLINICAL HISTORY: SCREENING,Z12.31, FAMILY H/O BREAST CA. TECHNIQUE: Bilateral full field digital CC and MLO mammographic images were obtained with 3D tomosynthesis and utilizing computer aided detection (CAD). COMPARISON: Prior outside mammograms were reviewed. FINDINGS: There are no new findings in the immediate vicinity of a biopsy marker clip in the anterior aspect of the left breast. However, at the 12 o'clock position in the anterior aspect left breast there is a small well-defined noncalcified round nodule measuring or a.m. a.m. at the 12 o'clock position located 2 cm in from the nipple. This appears unchanged from mammogram of November 2022 but was not evident on mammograms prior to that date. There are no malignant-appearing microcalcification groups in this region nor elsewhere in either breast. In the opposite-right breast is unchanged benign-appearing lymph node towards the upper outer quadrant. There are no new spiculated masses in either breast and there are no new malignant-appearing microcalcification groups. There is no significant architectural distortion nor skin thickening-retraction. IMPRESSION: 1. No radiographic evidence of malignancy in the right breast. 2. There is a well-defined noncalcified 4 millimeter nodule at 12 o'clock position of the left breast as described above. This does not exactly corresponding to the biopsy marker clip which is located nearby. Further imaging including spot compression view and left breast ultrasound recommended. BI-RADS Category 0 - Incomplete: Need additional imaging evaluation Breast Density - Category B - There are scattered areas of fibroglandular density. Breast density Category C or D implies that the patient has dense breast tissue. Dense breast tissue can make it harder to find cancer on a mammogram. Dense breast tissue is also associated with an increased risk of breast cancer. This information about the result of the mammogram report was provided to the patient to raise their awareness. Use this report when you speak with the patient about their risks for breast cancer, which includes their family history. At that time, you may recommend additional screening tests (Ultrasound or MRI) as these tests may add significant information. A negative radiographic report should not delay biopsy if a dominant or clinically suspicious mass is present. Up to ten percent of cancers are not identified on mammography. A negative report may reinforce clinical impression. Adenosis and dense breasts may obscure an underlying neoplasm. False positive reports average 6 to 10%. Patient will receive a letter notifying them of these results.
== END 2024-11-19 04:51 ==
PROVIDERS: PCP Internal Medicine; Visit Provider Physician Assistant
DX: Z12.31 Encounter for screening mammogram for malignant neoplasm of breast (principal)
CPT/HCPCS: 77063; 77067

== ENCOUNTER 2024-12-02 00:15 | Outpatient (CLI) | payer BC, SELFPAY ==
--- NOTE | 2024-12-02 | DI.US_ITS ---
Exam(s) MG MAMMO SCREEN CALL BACK UNI US BREAST LT COMPLETE EXAM: MG MAMMO SCREEN CALL BACK UNI and U/S breast LT complete CLINICAL HISTORY: F/U ABNL MAMMO, LT BREAST NODULE, R92.8, NOT EXACTLY CORRESPONDING TO BX. TECHNIQUE: Craniocaudal and mediolateral oblique Full Field Digital Mammography views of the left breast with Computer Aided Diagnosis followed by Tomosynthesis and complete left breast ultrasound. All 4 quadrants, the retroareolar region and axilla were evaluated sonographically. COMPARISON: Comparison is made with prior examinations. FINDINGS: Mammography/Tomosynthesis: Masses/Architectural Distortion: The well-circumscribed nodule in the retroareolar region of the left breast persists on the additional views. It appears to lie at the 12 o'clock position of the left breast. There is again seen a biopsy clip in the retroareolar region of the left breast. Microcalcifictions: No suspicious pleomorphic-type are seen. Skin Thickening/Nipple Retraction: None. Complete left breast US: Echotexture: Normal appearance of the glandular tissue. Shadowing: No suspicious foci. Cyst: At the 12 o'clock position of the left breast 2 cm from the nipple there is a well-circumscribed 0.3 cm cyst. It would correspond to the mammographic abnormality. Solid lesions: There is an ovoid 0.4 cm hypoechoic well-circumscribed nodule at the 1 o'clock position of the left breast in the retroareolar soft tissues. This may represent a benign lesion such as a fibroadenoma. There areas at the 1 o'clock position in the retroareolar region which may represent normal fibroglandular tissue. There is a well-circumscribed hypoechoic area at the 4 o'clock position of the left breast 4 cm from the nipple. It appears to have an eccentric notch suggestive of an intraparenchymal lymph node. It measures 0.4 cm. Ductal dilation: None. IMPRESSION: 1. No definite evidence for malignancy is seen at this time. 2. A 3 month follow-up left breast ultrasound is requested for re-evaluation. 3. The findings were discussed with the patient on the date of the examination. BI-RADS Category 3 - Probably Benign Finding: Recommend follow-up imaging in 3 months Breast Density - Category B - There are scattered areas of fibroglandular density. Breast density Category C or D implies that the patient has dense breast tissue. Dense breast tissue can make it harder to find cancer on a mammogram. Dense breast tissue is also associated with an increased risk of breast cancer. This information about the result of the mammogram report was provided to the patient to raise their awareness. Use this report when you speak with the patient about their risks for breast cancer, which includes their family history. At that time, you may recommend additional screening tests (Ultrasound or MRI) as these tests may add significant information. A negative radiographic report should not delay biopsy if a dominant or clinically suspicious mass is present. Up to ten percent of cancers are not identified on mammography. A negative report may reinforce clinical impression. Adenosis and dense breasts may obscure an underlying neoplasm. False positive reports average 6 to 10%. Patient will receive a letter notifying them of these results.
== END 2024-12-02 00:35 ==
LOC: DI 00:15
PROVIDERS: PCP Internal Medicine; Visit Provider Physician Assistant
DX: Z12.31 Encounter for screening mammogram for malignant neoplasm of breast (principal); R92.8 Other abnormal and inconclusive findings on diagnostic imaging of breast
CPT/HCPCS: 76642; 77063; 77067

== ENCOUNTER 2025-01-15 13:27 | Emergency (ER) | payer BC, SELFPAY ==
[2025-01-15 13:29] VITALS: BP 153/80; PULSE 72; RESP 18; TEMP 36.6; O2SAT 98
--- NOTE | 2025-01-15 13:45 | DI.RAD_ITS ---
Exam(s) XR KNEE RT 3V AP,LAT,NOLA EXAM: XR KNEE RT 3V AP,LAT,NOLA CLINICAL HISTORY: knee pain and swelling. TECHNIQUE: 2D digital imaging was performed. Three views. COMPARISON: CR XR KNEE LEFT 3 VIEWS from 05/25/2024 CR XR KNEE RIGHT 4 OR MORE VIEWS from 05/25/2024 FINDINGS: BONES: No acute fracture is present. No bony destructive lesion is seen. JOINTS: Moderate narrowing of the medial femoral tibial joint space. Periarticular spurring. Mild varus angulation.. A small to moderate-sized joint effusion is seen. SOFT TISSUE: Normal. IMPRESSION: Joint effusion. Degenerative changes of the medial femoral tibial joint. DATA REPOSITORY: RADIATION DOSE DELIVERED:
--- NOTE | 2025-01-15 13:45 | DI.US_ITS ---
Exam(s) US LOWER EXTREMITY VENOUS RT EXAM: US LOWER EXTREMITY VENOUS RT CLINICAL HISTORY: Calf tenderness and swelling, eval DVT. TECHNIQUE: Lower extremity venous ultrasound performed using grayscale, color- flow, and spectral Doppler analysis. COMPARISON: CR XR KNEE RT 3V AP,LAT,NOLA from 01/15/2025 FINDINGS: The common femoral, femoral and popliteal veins demonstrate normal compressibility, augmentation, and color Doppler. The posterior tibial and peroneal veins are patent. No saphenous vein thrombosis or other superficial venous thrombosis is seen. No hematoma or Stroud's cyst is seen. A joint effusion is seen. IMPRESSION: Knee joint effusion.. No evidence of DVT. DATA REPOSITORY:
[2025-01-15] MEDS: Acetaminophen 500 MG TAB 1000 MG PO (14:09)
[2025-01-15] MEDS: Ketorolac 30 MG/ML VIAL IM (14:09)
--- NOTE | 2025-01-15 14:11 | W.ED.GENAD ---
Discharge Plan Disposition Patient Disposition: Home Condition: Stable Discharge Details Clinical Impression: Arthritis of right knee, Effusion of right knee Primary Care Provider: Alecia Godfrey ED Provider: Olivia Fine Home Meds and New Rx's Prescriptions: No Action meloxicam 15 mg tablet 15 mg PO DAILY Qty: 30 1RF Rx Instructions: Take one tablet daily for inflammation and pain simvastatin 40 MG tablet 40 mg PO DAILY cyclobenzaprine 10 MG tablet 10 mg PO TID PRN (Reason: Muscle Spasm) Qty: 15 0RF ascorbic acid (vitamin C) [Vitamin C] 500 mg Tablet 500 mg PO DAILY ferrous sulfate [iron] 325 mg (65 mg iron) Tablet 325 mg PO DAILY omega-3 fatty acids Capsule 1,000 mg PO DAILY nitroglycerin 0.4 mg Tablet, Sublingual 0.4 mg sublingual Q5 MIN PRN X3 PRNQty: 30 0RF gabapentin 100 mg Tablet 200 mg PO DAILY PRN (Reason: nerve pain ) citalopram 20 mg Tablet 40 mg PO DAILY losartan-hydrochlorothiazide 100-12.5 mg Tablet 1 tab PO DAILY Zepbound 15 mg/0.5 mL pen injector 15 mg subcut QWEEK Discharge Instructions Instructions: Knee pain Additional Instructions: You were seen in the emergency department today for evaluation of right knee pain and swelling. In our department you do full physical examination performed, and you had an ultrasound that was negative for deep vein thrombosis of that right leg. Your x-ray of your right knee does show some swelling inside the knee joint itself, but no evidence of fracture or other change from normal. You do have some degenerative changes for which you follow with orthopedics, and are likely causing the swelling today. As we discussed, you need to follow-up with both your primary care provider as well as orthopedics to discuss definitive management of your knee pain. I have sent you a short prescription of stronger pain medicine called morphine which you can try at night for severe pain that does not improve with your other medications. However, long-term prescriptions for this medication need to come from a primary care provider. Please use therapeutic dosing of Tylenol (acetaminophen) & Advil (ibuprofen) in an alternating fashion as follows: Take 1000mg of Tylenol every 6 hours without missing doses- that is 4 times per day. Penitent[facility] in between the Tylenol doses, take 600mg of Advil also on a 6 hour schedule, that is also 4 times per day. With this strategy, you will be taking something for fever/pain as often as every 3 hours. The daily maximum dosing of Tylenol is 4000mg, and the daily maximum dosing of Advil is 2400mg. Please note that some common cold medications & prescription pain medications may contain acetaminophen and you need to read OTC drug labels and factor that in to maximum daily doses. Please follow-up with your primary care provider in the next few days to discuss this visit and any symptoms that change, worsen, or persist. Thank you for allowing us to be part of your care. Stand Alone Forms: Portal Information HPI General Mode of arrival: ambulatory. Date/Time Provider Initiated Documentation: 01/15/25 13:29. Limitations to Documentation: no limitations. Information obtained by: patient and old records reviewed. HPI Narrative: This is a 59-year-old female patient with a history of arthritis of the right knee, status post steroid injections, presenting for evaluation of right knee pain, swelling, and calf discomfort. The patient reports that her knee injections are only lasting a few weeks, and then she has recurrence of her discomfort, which is primarily located in the medial compartment and superolateral compartment. She reports that she has had intermittent swelling of her knee which seems to go down into her calf. She has felt excessive calf fatigue, and soreness of that muscle. She has not sustained any falls or injuries, denies numbness, tingling, or weakness distal to this injury. She has not had fever or overlying skin changes, is using Tylenol and ibuprofen as needed for management of pain, has tried CBD topically without significant improvement. Related Data Home Medications ?Medication ?Instructions ?Recorded ?Confirmed cyclobenzaprine 10 mg tablet 10 mg PO TID PRN Muscle Spasm #15 03/21/17 01/15/25 tabs simvastatin 40 mg tablet 40 mg PO DAILY 03/21/17 01/15/25 ascorbic acid (vitamin C) 500 mg 500 mg PO DAILY 02/20/21 01/15/25 tablet (Vitamin C) ferrous sulfate 325 mg (65 mg 325 mg PO DAILY 02/20/21 01/15/25 iron) tablet (iron) Held on 08/12/24. Instructions: Changed by Provider omega-3 fatty acids 1,000 mg PO DAILY 02/20/21 01/15/25 nitroglycerin 0.4 mg sublingual 0.4 mg sublingual Q5 MIN PRN X3 05/12/21 01/15/25 tablet PRN #30 tabs citalopram 20 mg tablet 40 mg PO DAILY 01/03/22 01/15/25 losartan 100 1 tab PO DAILY 01/03/22 01/15/25 mg-hydrochlorothiazide 12.5 mg tablet gabapentin 100 mg tablet 200 mg PO DAILY PRN nerve pain 08/14/22 01/15/25 tirzepatide (weight loss) 15 15 mg subcut QWEEK 08/12/24 01/15/25 mg/0.5 mL subcutaneous pen injector (Zepbound) meloxicam 15 mg tablet 15 mg PO DAILY #30 tabs 10/06/24 01/15/25 Previous Rx's ?Medication ?Instructions ?Recorded cyclobenzaprine 10 mg tablet 10 mg PO TID PRN Muscle Spasm #15 03/21/17 tabs nitroglycerin 0.4 mg sublingual 0.4 mg sublingual Q5 MIN PRN X3 05/12/21 tablet PRN #30 tabs meloxicam 15 mg tablet 15 mg PO DAILY #30 tabs 10/06/24 Allergies Allergy/AdvReac Type Severity Reaction Status Date / Time hydrocodone (From Vicodin) Allergy Intermediate Itching Verified 11/04/24 14:11 General Stated Complaint: Orthopedic THEE: 4 Exam Narrative Exam Narrative: Gen: Awake and alert, in no apparent distress HEENT: Non-icteric sclera Neck: Supple Lungs: No apparent respiratory distress, normal respiratory effort. CV: Appears well perfused, strong distal pulses Abdomen: Non-distended MSK: Moves 4 extremities without apparent limitation in ROM. The patient's right knee is able to flex and extend both passively and actively, without significant discomfort though the patient reports that it feels tight when she does this. Moderate joint effusion palpable, no overlying skin changes such as redness, induration, or warmth. No tenderness to palpation over the quadriceps or patellar tendons nor the patella itself. Some medial joint line tenderness, no lateral joint line tenderness, no popliteal fossa tenderness. The right calf is not significantly swollen and there is no point tenderness along the deep vein system, but the patient does endorse some generalized discomfort. CSM's intact distal to this complaint, with no decreased strength, sensation, or circulation of the affected right foot. Skin: Visualized skin without rashes, cyanosis. Neuro: Normal Gait, no obvious focal deficits or facial asymmetry. Speaks in full, clear sentences. Psych: Appropriate for situation. Course Vital Signs Vital signs: Vital Signs Temperature 36.6 C 01/15/25 13: Pulse 72 01/15/25 13:29 Respiratory Rate 18 01/15/25 13:29 Blood Pressure 153/80 H 01/15/25 13:29 Pulse Oximetry 98 01/15/25 13: Temperature 36.6 C 01/15/25 13: Pulse 72 01/15/25 13:29 Respiratory Rate 18 01/15/25 13:29 Blood Pressure 153/80 H 01/15/25 13:29 Pulse Oximetry 98 01/15/25 13: Pain Level 3 01/15/25 13:29 Medical Decision Making This is a 59-year-old female patient presenting for evaluation of knee and calf pain. Differential includes but is not limited to osteoarthritis, sprain/strain, less likely fracture or dislocation in this patient to does not have any trauma. Considered Stroud's cyst, DVT, no evidence for infectious pathology such as cellulitis, septic arthritis, nor gout/pseudogout. No evidence for arterial occlusion or neurovascular derangement. I will provide the patient with Tylenol and Toradol for initial management of pain, we will obtain a duplex ultrasound of the right lower extremity as well as an x-ray of the right knee. - X-ray and ultrasound reviewed by myself, there is no evidence of DVT, fracture or dislocation, though the patient does have a mild to moderate knee joint effusion. She has evidence of degenerative changes consistent with her diagnosis of osteoarthritis of the right knee. I shared these findings with the patient, she endorses reassurance, and will follow-up with her PCP and orthopedics doctors at her scheduled visits. I did provide her with a take-home bottle with a short course of oral morphine for nighttime breakthrough pain and counseled her on ongoing conservative management. At this time, the patient has had a full medical evaluation and is safe for discharge to home. They are hemodynamically stable, ambulatory, and tolerating PO. They are understanding of the follow-up plan and return precautions. They left our facility without incident. Olivia Fine MD PFSH All Active Problems (Updated 01/15/25 @ 15:05 by Olivia Fine MD) Effusion of right knee (Acute) Arthritis of right knee (Chronic) Steroid injection: 11/04/2024 Previous injections at [facility] -last injection May 2024 Crushing injury of left thumb (Acute) Pain of left heel (Acute) Bone spur of left ankle (Acute) Tear of peroneal tendon of right foot (Acute) Bone spur of right ankle (Acute) Pain of right heel (Acute) Right Achilles tendinitis (Acute) Medical History Chest pain HTN (hypertension) Hyperlipemia Surgical History History of appendectomy History of hysterectomy Hx of cholecystectomy Social History Smoking/Tobacco Use Status: Never Smoking risk assessment performed?: Yes Alcohol Intake: current Alcohol Intake frequency: holidays/special occasions only Drug use: Never Substance use type: does not use Current gender identity: female Do you feel safe at home: Yes Do you feel safe in your relationship?: Yes
[2025-01-15 15:18] VITALS: BP 131/68; PULSE 68; RESP 16; TEMP 37; O2SAT 98
== END 2025-01-15 15:20 | disposition home or self-care (01) ==
PROVIDERS: Emergency Provider Emergency Medicine; PCP Internal Medicine
DX: M17.11 Unilateral primary osteoarthritis, right knee (principal); M25.461 Effusion, right knee
CPT/HCPCS: 73562; 96372; 99284; 93971; 99283; J1885